=== PATIENT | male | born 1935 | race Caucasian/White ===

== ENCOUNTER 2016-06-10 14:34 | Emergency (ER) | payer MEDICARE ==
[2016-02-03 10:40] VITALS: BMI 32.8
[~2016-06-10 14:34] MED LIST: ADVAIR 100/501 DISK INH; ADVAIR 500/501 DISK INH; BAYER CHEWABLE81 MG PO; BUMEX2 MG PO; CLARITIN 10 MG10 MG PO; COLACE100 MG PO; COMBIVENT RESPIM4 GM INH; COREG 3.1253.125 MG PO; CRESTOR40 MG PO; DALIRESP500 MCG PO; DOXYCYCLINE HY100 M2 PO; IPRAT-ALBUT 0.5-3 ML UPD; K-TAB10 MEQ PO; LACTINEX GRANUL1 PCK PO; LEVAQUIN500 MG PO; LEVAQUIN750 MG PO; MACRODANTIN100 MG PO; MUCINEX DM ER1 EAC1 PO; NORVASC10 MG PO; PLAVIX75 MG PO; PREDNISONE20 MG PO; PRILOSEC20 MG PO; STERAPRED DS 1010 MG PO; TESSALON PERLE100 MG PO; VALTREX500 MG PO; VIBRAMYCIN 100100 MG PO; XANAX0.25 MG PO
== END 2016-06-10 16:52 | disposition home or self-care (01) ==
LOC: D.ER 14:34
DX: J44.1 Chronic obstructive pulmonary disease with (acute) exacerbation (principal); J42 Unspecified chronic bronchitis

== ENCOUNTER → 2016-06-18 19:30 | Outpatient (CLI) | payer MEDICARE ==
[2016-02-03 10:40] VITALS: BMI 32.8
[~2016-06-18 19:30] MED LIST changes: +ALBUTEROL2.5 MG/3 M UPD; +BETAPACE 120 M120 MG PO; +BROVANA15 MCG/2 M INH; +BUMEX 1 MG TAB1 MG PO; +FLORAJEN3 CAPS460 MG PO; +IPRAT-ALBUT 0.5-3 ML INH; +K-DUR20 MEQ PO; +LASIX INJ40 MG/4 ML IV; +LOVENOX30 MG/0.3 SC; +MUCINEX600 MG PO; +MUCOMYST 20200 MG/M2 UPD; +NYSTATIN1 PWD TOPICAL; +PROTONIX40 MG PO; +PULMICORT0.5 MG/21 UPD; +ZOVIRAX200 MG PO
== END | disposition home or self-care (01) ==
LOC: D.SLEEP 19:30
DX: G47.33 Obstructive sleep apnea (adult) (pediatric) (principal)

== ENCOUNTER → 2016-06-27 08:35 | Outpatient (CLI) | payer MEDICARE ==
[2016-02-03 10:40] VITALS: BMI 32.8
== END | disposition home or self-care (01) ==
LOC: D.RT 08:35
DX: J44.9 Chronic obstructive pulmonary disease, unspecified (principal)

== ENCOUNTER 2016-07-09 13:42 | Inpatient (IN) | payer MEDICARE ==
[2016-07-09] VITALS (25 sets, daily range): BP systolic 98–123; BP diastolic 45–78; BMI 36.4
[~2016-07-09] VITALS: Ht 190.5 cm; Wt 130.5 kg
[~2016-07-09 13:42] MED LIST changes: -ALBUTEROL2.5 MG/3 M UPD; -BETAPACE 120 M120 MG PO; -BROVANA15 MCG/2 M INH; -BUMEX 1 MG TAB1 MG PO; -FLORAJEN3 CAPS460 MG PO; -IPRAT-ALBUT 0.5-3 ML INH; -K-DUR20 MEQ PO; -LASIX INJ40 MG/4 ML IV; -LOVENOX30 MG/0.3 SC; -MUCINEX600 MG PO; -MUCOMYST 20200 MG/M2 UPD; -NYSTATIN1 PWD TOPICAL; -PROTONIX40 MG PO; -PULMICORT0.5 MG/21 UPD; -ZOVIRAX200 MG PO
[2016-07-09 14:21] LABS: BASOPHILS 0.5 % (0.0-2.0); EOSINOPHILS 10.5 % (0-7); HEMATOCRIT 45.8 % (42.0-54.0); HEMOGLOBIN 14.6 g/dL (13.5-17.5); IMMATURE GRANULOCYTES 0.2 % (0-5); LYMPHOCYTES 22.5 % (15-50); MCH 30.4 pg (26.0-34.0); MCHC 31.9 g/dL (31.0-37.0); MCV 95.2 fL (80.0-100.0); MEAN PLATELET VOLUME 10.4 fL (7.4-10.4); MONOCYTES 6.3 % (2-11); PLATELET COUNT 217 10x3/uL (130-400); RBC 4.81 10x6/uL (4.20-6.10); RDW 14.4 % (11.5-14.5); WBC 9.4 10x3/uL (4.8-10.8)
[2016-07-09 14:59] LABS: ALBUMIN 4.5 g/dL (3.4-5.0); ANION GAP 8.8 mmol/L (8-16); BILIRUBIN - TOTAL 0.63 mg/dL (0.2-1.3); CALCIUM 8.8 mg/dL (8.5-10.1); CARBON DIOXIDE 37.4 mmol/L (21.0-32.0); CREATININE - SERUM 2.1 mg/dL (0.6-1.3); POTASSIUM - SERUM 5.2 mmol/L (3.5-5.1); PROTEIN - SERUM 7.6 g/dL (6.4-8.2)
[2016-07-09 15:20] LABS: CREATINE KINASE 117 UL (21-232); MAGNESIUM - SERUM 2.5 mg/dL (1.8-2.4); PRO BNP 159 pg/mL (0-450); TROPONIN-I < 0.017 ng/mL (0.000-0.060)
--- NOTE | 2016-07-09 17:48 | NUR ---
1740-PT REC'D TO ICU, ALL MONITORING EQUIPMENT ATTACHED. LEVOPHED AT 8MCG/MIN. DIPROVAN AT 12MCG/KG/MIN. BP 123/[address] BAEZ HERE.
--- NOTE | 2016-07-09 18:16 | NUR ---
16FR SALEM SUMP TUBE DROPPED OG, PLACEMENT VERIFIED WITH AIR BOLUS AND STOMACH SECRETIONS. SET TO LIWS. SECONDARY TO 20G AC IV BEING DC'D WHEN TRANSFERED FROM ER CART TO BED, IV RESITED TO RIGHT HAND WITH 20G X 1 STICK. PATIENT WAS REPOSITIONED FOR COMFORT, PATIENT FROM ER WITH SOFT WRIST RESTRAINTS IN PLACE, AND THEY WERE SECURED TO THE BED. ELDER CATH NOTED TO HAVE CLEAR YELLOW URINE IN IT. SULAIMAN RN AT BEDSIDE WORKING ON ADMISSION PAPERWORK WITH FAMILY X2 AT BEDSIDE. TIME OF ARRIVAL WAS 1740.
--- NOTE | 2016-07-09 20:00 | NUR ---
INITIAL ADMIT ASSESSMENT DONE IN LIEU OF INITIAL SHIFT ASSESSMENT SEE FLOWSHEET. SOME OF THE NUTRITRIONAL, EDUCATIONAL AND DISCHARGE NEEDS DONE WITH LIMITED INFORMATION AVAILABLE. THERE IS NO FAMILY HERE TO QUESTION ABOUT TIME IMMEDIATELY PRIOR TO HOSPITALIZATION AND PT IS INTUBATED AND SEDATED. PT IS ALSO SOMEWHAT AGGITATED AND PULLING AT RESTRAINTS AND BITING AT ETT. SEDATION WILL BE INCREASED NECESSARY. PT UNABLE TO BE CALMED WITH TALKING AND ANY STIMULATION ONLY INCREASES HIS AGGITATION. PT IS IN RESTRAINTS AND IS TOTAL CARE AT THIS TIME.
--- NOTE | 2016-07-09 20:30 | NUR ---
RT AT BEDSIDE INCREASED RESP RATE OF VENT TO [address] TAN'S ORDERS BASED ON ABG RESULTS
--- NOTE | 2016-07-09 21:00 | NUR ---
NO VISITORS AT THIS TIME
--- NOTE | 2016-07-09 21:22 | NUR ---
NEW TUBING HUNG FOR LIGIA
--- NOTE | 2016-07-09 23:00 | NUR ---
SHIFT REASSESSMENT COMPLETED SEE FLOWSHEET. TITRATING LEVOPHED TOLERATED. TITRATING DIPROVAN NEEDED FOR SEDATION. RATE OF VENT HAS INCREASED TO 18 THIS SHIFT. NO OTHER VENT CHANGES. ORAL MUCOSA MUCH LESS DRY. ORAL CARE Q2H. PT BEING TURNED AND REPOSITIONED Q2H WITH PILLOWS TO ELEVATED EXTREMETIES AND PROVIDE SUPPORT AND RELIEVE PRESSURE. HEELS ARE FLOATED.
[2016-07-10] VITALS (74 sets, daily range): BP systolic 84–144; BP diastolic 42–86; Ht 190.5 cm; Wt 130.5 kg
--- NOTE | 2016-07-10 01:00 | NUR ---
PT IS TOLERATING VENTILATION WELL AT THIS TIME IS NOT BREATHING OVER THE VENT AND WITH NO AGGITATION
--- NOTE | 2016-07-10 03:00 | NUR ---
SHIFT REASSESSMENT COMPLETED NO SIGNIFICANT CHANGE. PT CONTINUES TO BECOME AGGITATED WITH ANY STIMULATION
--- NOTE | 2016-07-10 03:29 | NUR ---
RT AT BEDSIDE FOR AM ABGS
--- NOTE | 2016-07-10 03:29 | NUR ---
PT AGGITATED MEDS GIVEN PER MAR
--- NOTE | 2016-07-10 04:05 | NUR ---
ATIVAN EFFECTIVE FOR PT'S AGGITATION
--- NOTE | 2016-07-10 04:27 | NUR ---
RADIOLOGY AT BEDSIDE FOR CXR
--- NOTE | 2016-07-10 04:51 | NUR ---
DIPROVAN TUBING LEAKING, CHANGED AND DATED ALL TUBING IS DATED AND APPROPRIATE. FORM TAMPING MACHINE OPERATOR AT BEDSIDE FOR AM LAB DRAW
[2016-07-10 04:58] LABS: BASOPHILS 0.1 % (0.0-2.0); EOSINOPHILS 0.1 % (0-7); IMMATURE GRANULOCYTES 0.4 % (0-5); LYMPHOCYTES 7.7 % (15-50); MCH 30.3 pg (26.0-34.0); MCHC 31.7 g/dL (31.0-37.0); MCV 95.6 fL (80.0-100.0); MEAN PLATELET VOLUME 10.3 fL (7.4-10.4); MONOCYTES 0.6 % (2-11); NEUTROPHILS 91.1 % (40-80); PLATELET COUNT 212 10x3/uL (130-400); RBC 4.29 10x6/uL (4.20-6.10); RDW 14.3 % (11.5-14.5); WBC 10.2 10x3/uL (4.8-10.8)
[2016-07-10 05:19] LABS: CALCIUM 8.1 mg/dL (8.5-10.1); CARBON DIOXIDE 31.3 mmol/L (21.0-32.0); CHLORIDE - SERUM 102 mmol/L (98-107); MAGNESIUM - SERUM 2.3 mg/dL (1.8-2.4); PHOSPHOROUS 4.7 mg/dL (2.5-4.9); POTASSIUM - SERUM 5.7 mmol/L (3.5-5.1); SODIUM 139 mmol/L (136-145); TROPONIN-I < 0.017 ng/mL (0.000-0.060); UREA NITROGEN 63 mg/dL (7-18); eGFR NON AFRICAN AMERICAN 24 mL/min (90-120)
[2016-07-10 05:20] LABS: CALC OSMOLALITY 300 mosm/kg (275-300); CREATININE - SERUM 2.7 mg/dL (0.6-1.3); GLUCOSE 180 mg/dL (74-106)
--- NOTE | 2016-07-10 05:27 | NUR ---
UPON CHANGING LEADS ON EKG RHYTHM MORE CLEAR. PT IS SINUS ARHYTHMIA WITH PAC'S NOT AFIB
--- NOTE | 2016-07-10 09:43 | NUR ---
PATIENT IS ON THE VENT AND SEDATED. I HAVE NOT SEEN ANY FAMILY HERE TO INTERVIEW. CM TO FOLLOW.
--- NOTE | 2016-07-10 16:42 | NUR ---
1645- CT OF ABD DONE.
--- NOTE | 2016-07-10 19:30 | NUR ---
REPORT RECEIVED CARE ASSUMED. INITIAL SHIFT ASSESSMENT COMPLETED. PT REMAINS SEDATED WITH DIPROVAN AND IS SUPPORTED VIA VENTILATOR. CURRENTLY RECEIVING LEVOPHED TO MAINTAIN ADEQUATE B/P, TITRATING, SEE IV FLOWSHEET. PT REMAINS TOTAL CARE AND IS TURNED AND REPOSTIONED Q2H WITH PILLOWS USED TO FLOAT HEELS, PROVIDE SUPPORT, RELIEVE PRESSURE AND TO ELEVATE ARMS. COCCYX IS MUCH IMPROVED OF THE REDNESS OBSERVED IN PAST 24 HOURS. WILL CONTINUE TO TURN STATED. PT BEING MONITORED PER ICU PROTOCOL WITH ALL ALARMS SET. IV TUBING IS NOTED TO BE CURRENT AND NOT DUE TO BE CHANGED AT THIS TIME
--- NOTE | 2016-07-10 20:30 | NUR ---
URINE SPECIMEN COLLECTED AND SENT TO THE LAB FOR ANALYSIS
--- NOTE | 2016-07-10 21:18 | NUR ---
LABS REVIEWED K+ 4.9 WILL CONTINUE TO MONITOR. NO VISITORS AT THIS TIME
[2016-07-10 21:30] LABS: CREATININE - URINE 57.6 mg/dL (30-125)
[2016-07-10 21:33] LABS: APPEARANCE CLEAR (CLEAR); BILIRUBIN NEGATIVE (NEGATIVE); COLOR YELLOW (YELLOW); GLUCOSE NEGATIVE (NEGATIVE); KETONE NEGATIVE (NEGATIVE); LEUKOCYTE ESTERASE TRACE (NEGATIVE); NITRITE NEGATIVE (NEGATIVE); PROTEIN NEGATIVE (NEGATIVE); UROBILINOGEN NORMAL (NORMAL)
[2016-07-10 21:34] LABS: BACTERIA FEW /hpf (NONE SEEN); WHITE CELLS - URINE 0-5 /hpf (0-5)
--- NOTE | 2016-07-10 23:00 | NUR ---
SHIFT REASSESSMENT COMPLETED NO SIGNIFICANT CHANGES. CONTINUE TO TITRATE LEVOPHED WITH CHANGES NOTED ON THE IV FLOWSHEET. PT WAS GIVEN ATIVAN DOCUMENTED ON MAR FOR AGGITATION. THIS WAS EFFECTIVE.
--- NOTE | 2016-07-10 23:45 | NUR ---
DIPROVAN TUBING CHANGED PER POLICY
[2016-07-11] VITALS (27 sets, daily range): BP systolic 91–142; BP diastolic 42–65
--- NOTE | 2016-07-11 01:00 | NUR ---
PT RESTING QUIETLY RESP CORRESPONDING WITH VENT SETTINGS
--- NOTE | 2016-07-11 03:00 | NUR ---
SHIFT REASSESSMENT COMPLETED. PT INCONTINENT OF LOOSE BROWN STOOL. GIVEN COMPLETE BATH AND ALL LINENS CHANGED. SEE FLOWSHEETS. NO SIGNIFICANT CHANGES. PT REMAINS OFF OF LEVOPHED AND IS MAINTAINING ADEQUATE B/P'S
--- NOTE | 2016-07-11 03:30 | NUR ---
RT AT BEDSIDE DOING ABG'S, REVIEWED, NO CHANGES NEEDED ON VENT
--- NOTE | 2016-07-11 04:00 | NUR ---
RADIOLOGY AT BEDSIDE FOR AM CRX
--- NOTE | 2016-07-11 04:18 | NUR ---
LAB AT BEDSIDE FOR AM LAB DRAW
[2016-07-11 05:08] LABS: BASOPHILS 0 % (0.0-2.0); EOSINOPHILS 0 % (0-7); HEMOGLOBIN 10.8 g/dL (13.5-17.5); IMMATURE GRANULOCYTES 0.2 % (0-5); LYMPHOCYTES 6.3 % (15-50); MCH 31.7 pg (26.0-34.0); MCHC 32.7 g/dL (31.0-37.0); MCV 96.8 fL (80.0-100.0); MEAN PLATELET VOLUME 10.6 fL (7.4-10.4); MONOCYTES 1.8 % (2-11); NEUTROPHILS 91.7 % (40-80); RDW 14.7 % (11.5-14.5); WBC 10.9 10x3/uL (4.8-10.8)
[2016-07-11 05:15] LABS: PLATELET COUNT 154 10x3/uL (130-400); RBC 3.41 10x6/uL (4.20-6.10)
[2016-07-11 05:22] LABS: CARBON DIOXIDE 25.7 mmol/L (21.0-32.0); CREATININE - SERUM 2.7 mg/dL (0.6-1.3); MAGNESIUM - SERUM 1.8 mg/dL (1.8-2.4); PHOSPHOROUS 4.4 mg/dL (2.5-4.9)
[2016-07-11 05:31] LABS: ALBUMIN 2.7 g/dL (3.4-5.0); ANION GAP 14.8 mmol/L (8-16); POTASSIUM - SERUM 3.5 mmol/L (3.5-5.1)
--- NOTE | 2016-07-11 08:00 | NUR ---
SHIFT ASSESSMENT VIA FLOWSHEET, SEE FOR DETAILS.
--- NOTE | 2016-07-11 12:24 | NUR ---
SIGNIFICANT OTHER AT BEDSIDE UPDATE BY DR TAN AND MYSELF.
--- NOTE | 2016-07-11 13:24 | NUR ---
PT'S WAS HERE EARLIER TODAY. I WAS NOT IN THE UNIT AND DID NOT GET TO INTERVIEW HER. PATIENT'S NURSE STATES SHE SHOULD BE BACK TOMORROW. CM WILL TRY TO INTERVIEW WHEN SHE VISITS TOMORROW. CM TO FOLLOW.
--- NOTE | 2016-07-11 19:30 | NUR ---
REPORT RECEIVED CARE ASSUMED. INITIAL SHIFT ASSESSMENT PER FLOWSHEET. PT CURRENTLY RECEIVING DIPROVAN FOR SEDATION WILL ASSESS AND TITRATE. RECEIVING PULMOCARE VIA OGT AT 30ML/HR WITH GOAL OF 40 WILL INCREASE TOLERATED. PLACEMENT VERIFIED WITH AIR BOLUS RESIDUAL 5ML RETURNED AND FLUSHED WITH 20ML WATER. ALL TUBING CHECKED AND IS CURRENT NOT REQUIRING CHANGING AT THIS TIME. PT REMAINS TOTAL CARE WITH ALL ADL'S PROVIDED AND TURNED AND REPOSITIONED Q2H USING PILLOWS TO ELEVATE ARMS, PROVIDE SUPPORT, RELIEVE PRESSURE AND FLOAT HEELS. PT BEING SUPPORTED VIA VENTILATOR AND TOLERATING WELL. POORLY TOLERATES STIMULATION INCLUDING ORAL CARE. MOUTH IS MOIST AND PURPLE RAISED ARE ON RIGHT LOWER LIP IS FADING RAPIDLY. PT BEING MONITORED PER STANDARD ICU PROTOCOL WITH ALL ALARMS CHECKED AND VERIFIED
--- NOTE | 2016-07-11 21:00 | NUR ---
PT TURNED AND REPOSTIONED WITH ROM. NYSTATIN POWDER APPLIED TO GROIN AFTER F/C CARE DONE. ORAL CARE DONE PT TOLERATEDN VERY WELL. RESIDUAL AND PLACEMENT OF OGT RECHECKED IN ANTICIPATION OF INCREASING TOWARD GOAL RESIDUAL 65 RETURNED AND FLUSHED REMAINING AT 30ML/HR FOR NOW
--- NOTE | 2016-07-11 21:05 | NUR ---
NO VISITORS AT THIS TIME
--- NOTE | 2016-07-11 23:27 | NUR ---
REASSESSMENT COMPLETE, NO CHANGES NOTED, PT RESTING AT THIS TIME, REPOSITIONED FOR COMFORT, ORAL CARE PROVIDED
[2016-07-12] VITALS (24 sets, daily range): BP systolic 115–158; BP diastolic 50–78
--- NOTE | 2016-07-12 01:09 | NUR ---
REPOSITIONED FOR COMFORT, ORAL CARE PROVIDED
--- NOTE | 2016-07-12 03:20 | NUR ---
REASSESSMENT COMPLETE, NO CHANGES NOTED, PT RESTING AT THIS TIME, REPOSITIONED FOR COMFORT, ORAL CARE PROVIDED
[2016-07-12 04:59] LABS: BASOPHILS 0 % (0.0-2.0); EOSINOPHILS 0 % (0-7); HEMATOCRIT 34.3 % (42.0-54.0); HEMOGLOBIN 11.2 g/dL (13.5-17.5); IMMATURE GRANULOCYTES 0.3 % (0-5); LYMPHOCYTES 3.9 % (15-50); MCH 31.3 pg (26.0-34.0); MCHC 32.7 g/dL (31.0-37.0); MCV 95.8 fL (80.0-100.0); MEAN PLATELET VOLUME 10.7 fL (7.4-10.4); MONOCYTES 3.5 % (2-11); NEUTROPHILS 92.3 % (40-80); PLATELET COUNT 153 10x3/uL (130-400); RBC 3.58 10x6/uL (4.20-6.10); RDW 14.6 % (11.5-14.5); WBC 9.4 10x3/uL (4.8-10.8)
--- NOTE | 2016-07-12 05:05 | NUR ---
PARTIAL BB LINEN CHANGE ADM. VSS WILL CONTINUE TO MONITOR.
[2016-07-12 05:25] LABS: ALBUMIN 2.5 g/dL (3.4-5.0); ANION GAP 11.5 mmol/L (8-16); BILIRUBIN - TOTAL 0.79 mg/dL (0.2-1.3); CARBON DIOXIDE 27.8 mmol/L (21.0-32.0); CREATININE - SERUM 1.9 mg/dL (0.6-1.3); POTASSIUM - SERUM 3.3 mmol/L (3.5-5.1)
[2016-07-12 05:26] LABS: CALCIUM 6.4 mg/dL (8.5-10.1); PROTEIN - SERUM 5.2 g/dL (6.4-8.2)
--- NOTE | 2016-07-12 05:39 | NUR ---
COMPLETE BATH AND PARTIAL LINEN CHANGE
--- NOTE | 2016-07-12 08:00 | NUR ---
SHIFT ASSESSSMENT VIA FLOWSHEET, SEE FOR DETAILS.
--- NOTE | 2016-07-12 09:10 | NUR ---
FAMILY AT BEDSIDE, UPDATE PROVIDED.
--- NOTE | 2016-07-12 09:15 | NUR ---
NO VISITORS AT THIS TIME, PT REPOSITIONED. VSS.
--- NOTE | 2016-07-12 09:42 | NUR ---
NUTRITION MONITORING & EVAL CHART REVIEWED. PT REMAINS SEDATED ON VENT. DIPRIVAN @ 38 CC/HR PROVIDING 1003 KCAL PER DAY. PULMOCARE AT 30 CC PER HOUR WITH GOAL RATE 45 CC/HR. GOAL RATE WITH DIPRIVAN WILL PROVIDE [phone] KCAL, [address] FOLLOWING
--- NOTE | 2016-07-12 11:30 | NUR ---
REASSESSMENT VIA FLOWSHEET, SEE FOR DETAILS.
--- NOTE | 2016-07-12 12:19 | NUR ---
PT'S S/O AT BEDSIDE, UPDATED BY DR BAEZ AND MYSELF.
--- NOTE | 2016-07-12 13:06 | NUR ---
Is the patient Alert and Oriented? No 0 * How many steps to enter\exit or inside your home? 0 0 * PCP DR. ORNELAS 0 * Pharmacy [facility] ON [address] 0 * Preadmission Environment Home with Family 0 * ADLs Independent 0 * Equipment Oxygen 0 * Other Equipment PATIENT HAS PORTABE AND CONCENTRATOR O2 FROM [facility] 0 * List name and contact numbers for known caregivers / representatives who currently or will assist patient after discharge: S/O ABELARDO DODGE [phone] 0 * Community resources currently utilized None 0 * Additional services required to return to the preadmission environment? No 0 * Can the patient safely return to the preadmission environment? Yes 0 * Has this patient been hospitalized within the prior 30 days at any hospital? No PATIENT IS ON THE VENT AND SEDATED. HIS S/O, ABELARDO IS PRESENT AND STATES THAT PATIENT WAS INDEPENDENT IN ALL ADLS. HE LIVES AT HOME. HIS PCP IS DR. ORNELAS. HE GETS HIS MEDS FROM [facility] ON [address] PATIENT HAD HOME HEALTH IN THE PAST BUT SHE DOES NOT RECALL WHO THE AGENCY WAS. HE HAS O2 PORTABLE AND CONCENTRATOR PROVIDED BY [facility]. THERE ARE NO STEPS TO ENTER HIS HOME. ABELARDO WILL BE AVAILABLE TO DRIVE HIM HOME AT DISCHARGE. NO DISCHARGE NEEDS IDENTIFIED AT THIS TIME.
--- NOTE | 2016-07-12 15:30 | NUR ---
REASSESSMENT VIA FLOWSHEET, SEE FOR DETAILS.
[2016-07-12 16:16] LABS: AFB SPECIMEN PROCESSING Concentration (())
--- NOTE | 2016-07-12 19:10 | NUR ---
REC'D TO CARE, POWER DISTRIBUTION ENGINEER PER FLOWSHEET. PT SEDATED ON VENT VIA OETT - SEE FLOWSHEET. DIPRIVAN AT 50MCG/KG/MIN - WILL TITRATE PER MD ORDER. R AND L HAND PIVS PATENT. GENERALIZE SWELLING NOTED TO ALL EXTR - ELEVATED ON PILLOWS. CM - SR WITH FREQ PACS. LUNGS WITH FAINT CRACKLES B/L AND DIMINISHED BASES. ELDER CATH PATENT - REDDENED/YEAST-LIKE AREAS NOTED TO B/L GROINS. ALARMS ON.
--- NOTE | 2016-07-12 21:00 | NUR ---
NO VISITORS. PT INCONT OF LARGE, LOOSE BROWN STOOL. COMPLETE BATH AND LINEN CHANGE DONE. BARRIER CREAM APPLIED TO BUTTOCKS. NYSTATIN POWDER TO GROIN ORDERED. PT REPOSITIONED UP IN BED TO R SIDE. ORAL CARE AND ETT SXN FOR COPIOUS CLEAR SECRETIONS.
--- NOTE | 2016-07-12 22:49 | NUR ---
REASSESSMENT PER FLOWSEHET. NO ACUTE CHANGES. REPOSITIONED UP IN BED. ROM DONE.
[2016-07-13] VITALS (25 sets, daily range): BP systolic 114–147; BP diastolic 50–95
--- NOTE | 2016-07-13 00:49 | NUR ---
PT INCONTINENT OF LARGE LOOSE BROWN BM. MARGARITA-CARE DONE AND PADS CHANGED. PT REPOSITIONED UP IN BED.
--- NOTE | 2016-07-13 03:01 | NUR ---
L HAND PIV D/C'D INTACT PER PROTOCOL. NEW 20GA PIV SITED TO L FOREARM X STICK. SL'D.
--- NOTE | 2016-07-13 03:21 | NUR ---
PCXR DONE. SEE REASSESSMENT. NO ACUTE CHANGES.
[2016-07-13 04:59] LABS: BASOPHILS 0 % (0.0-2.0); EOSINOPHILS 0 % (0-7); HEMATOCRIT 40.5 % (42.0-54.0); HEMOGLOBIN 12.5 g/dL (13.5-17.5); IMMATURE GRANULOCYTES 0.3 % (0-5); LYMPHOCYTES 4.2 % (15-50); MCH 29.8 pg (26.0-34.0); MCHC 30.9 g/dL (31.0-37.0); MCV 96.7 fL (80.0-100.0); MEAN PLATELET VOLUME 11.3 fL (7.4-10.4); MONOCYTES 3.6 % (2-11); NEUTROPHILS 91.9 % (40-80); PLATELET COUNT 149 10x3/uL (130-400); RBC 4.19 10x6/uL (4.20-6.10); RDW 15.1 % (11.5-14.5)
--- NOTE | 2016-07-13 05:11 | NUR ---
INCONT OF LARGE GREEN/BROWN LOOSE STOOL. COMPLETE MARGARITA-CARE DONE, NYSTATIN POWDER TO GROIN AND BARRIER OINT TO BUTTOCKS. REPOSITIONED UP IN BED TO R SIDE.
[2016-07-13 05:18] LABS: ANION GAP 11.6 mmol/L (8-16); CARBON DIOXIDE 32.8 mmol/L (21.0-32.0); CREATININE - SERUM 1.6 mg/dL (0.6-1.3); POTASSIUM - SERUM 4.4 mmol/L (3.5-5.1)
[2016-07-13 05:20] LABS: CALCIUM 8.3 mg/dL (8.5-10.1)
--- NOTE | 2016-07-13 08:09 | NUR ---
LYING IN BED AT THIS TIME. NO ACUTE DISTRESS NOTED. PT PROPIFOL DECREASED TO 45MCG AT THIS TIME. PT OPENS EYES TO STAFF SPEECH AND FOLLOWS SIMPLE COMMANDS. NO ACUTE DISTRESS. ALSO AT THIS TIME. NOTED PT SIGNIFICANT OTHER REQUESTED TO BE NOTIFIED WHEN PT IS TO START WEANING FROM VENT. SPOKE WITH PT SIGNIFICANT OTHER AT THIS TIME TO NOTIFY THAT PT TO START WEANING TRIALS TODAY, SHE STATED SHE WOULD BE BY TO SEE PT AROUND 1200. ALSO AT THIS TIME PULMOCARE TUBE FEEDINGS INCREASED FROM 40ML/HOUR TO 45ML/HOUR WHICH IS PT GOAL. RESIDUAL NOTED AT 5ML. PT TURNED Q2H. WILL CONTINUE PLAN OF CARE.
[2016-07-13 10:19] LABS: FUNGUS STAIN Final report (())
--- NOTE | 2016-07-13 10:26 | NUR ---
FAMILY AT BEDSIDE. UPDATE GIVEN. NO ACUTE DISTRESS NOTED. WILL CONTINUE PLAN OF CARE.
--- NOTE | 2016-07-13 12:04 | NUR ---
PT RHYTHM NOTED TO GO IN AND OUT OF AFIB AT THIS TIME WITH HEART RATE RANGING FROM 82-149 DR TAN ON FLOOR AT THIS TIME. NOTED STAT ORDERS FOR EKG AND TROPONIN LEVELS NOW. ALSO NOTED ORDER THAT IF AFIB BECOMES UNCONTROLLED AGAIN OVER 125 TO START CARDIZM AT 10ML/HOUR. WILL CONTINUE TO OBSERVE.
--- NOTE | 2016-07-13 12:32 | NUR ---
SPOKE WITH DR TAN. NOTED ORDER FOR PICC LINE PLACEMENT. PT SIGNIFICANT OTHER AT BEDSIDE AND GIVES CONSENT AND DENIES ANY QUESTIONS/CONCERNS. ORDER PLACED AT THIS TIME. ALSO AT THIS TIME CARDIZEM DRIP STARTED AT 10MG/HOUR. WILL CONTINUE PLAN OF CARE.
--- NOTE | 2016-07-13 12:46 | NUR ---
CONSENT FOR PICC LINE PLACEMENT SIGNED BY PT SIGNIFICANT OTHER WHO IS PT POA. CONSENT PLACED IN CHART.
--- NOTE | 2016-07-13 13:25 | NUR ---
VENOUS ACCESSS NURSE IN ROOM WITH PT AT THIS TIME PLACING PICC LINE. PT HEART RATE NOTED AT 85. NO ACUTE DISTRESS NOTED. WILL CONTINUE PLAN OF CARE.
--- NOTE | 2016-07-13 14:19 | NUR ---
PICC LINE PLACED AT THIS TIME BY VASCULAR NURSE. STAT CHEST XRAY ORDERED AT THIS TIME TO VERIFY PLACEMENT.
--- NOTE | 2016-07-13 15:01 | NUR ---
PLACEMENT VERIFICATION CONFIRMATION NOTED AT THIS TIME VIA CHEST XRAY.
--- NOTE | 2016-07-13 16:44 | NUR ---
NO ACUTE DISTRESS NOTED AT THIS TIME. PT MOVING LEGS IN BED AND FOLLOWS SIMPLE COMMANDS. OPENS EYES WHEN SPOKEN TO. NO ACUTE DISTRESS NOTED. WILL CONTINUE PLAN OF CARE.
--- NOTE | 2016-07-13 17:37 | NUR ---
NO ACUTE DISTRESS NOTED AT THIS TIME. NO CHANGE. WILL CONTINUE PLAN OF CARE.
--- NOTE | 2016-07-13 17:51 | NUR ---
RESIDUAL ASSESSED AT THIS TIME AND NOTED AT 30ML. PT TOLERATING FLUIDS WELL. WILL CONTINUE PLAN OF CARE.
--- NOTE | 2016-07-13 19:30 | NUR ---
Assessment complete. See flowsheet. Pt sedated with Propofol infusing @ 40mcg/kg/min. Eyes open and pt tracking. Right pupil blown/unreactive. Left pupil size 3 bilaterally ERRL. Pt moving all extremities with 2/5 strength to all extremities. Generalized edema noted. Pt with 7.5 FR OET tube secure 23cm @ lip to vent set SIMV Rate 16 TV 600 FiO2 @ 30% PEEP 5 PS 20. Lung sounds present rhonchi to all neff. Pt OET inline suctioned with thick, yellow sputum retrieved and strong, prodctive cough triggered. HR SR with frequent PACs. S1S2 auscultated. All peripheral pulses +2 with capillary refill <3 seconds. Left upper arm PICC line site CDI with Propofol sedation infusing with D5W @ 75cc/hr and Cardizem gtt infusing @ 10mg/hr. Abdomen distended with BS present to all quadrants. OGT secure to TF Pulmocare infusing @ 45cc/hr. Gastric residual check yields 200cc TF colored content aspirated and reinstilled. TF off for now. Morrell secure retrieving concentrated, dao urine with sediment. SCDs secure bilaterally. Right hand PIV/Left forearm PIV sites CDI saline locked no s/s infection. Pt incontinent of large, liquid, brown BM. Bed bath with incontinence care completed. Rectal tube placed. Skin barrier cream applied to buttox. Pt pulled up in bed and repositioned to left side with HOB @ 30 degrees. Oral care completed with mouth moisturizer applied. Arms and heels bridged. Bilat soft wrist restraints secured after ROM completed to all extremities. CPOC.
--- NOTE | 2016-07-13 21:30 | NUR ---
Pt repositioned to right side. HOB @ 30 degrees. Oral care completed with mouth moisturizer applied. CPOC.
--- NOTE | 2016-07-13 23:30 | NUR ---
Assessment complete. See flowsheet. Pt remains sedated to sarkis 3 with Propofol sedation infusing. NO neuro changes to note from previous assessment. OET tube remains secure to vent with no setting changes to note. Lung sounds continue to present rhonchi to all neff. Pt OET inline suctioned with strong, productive cough triggered and thin, veras sputum retrieved. oral care completed with mouth moisturizer applied. HR remains SR with frequent PACs noted. S1S2 auscultated. All peripheral pulses +2 with capillary refill <3 seconds. PICC line site CDI with NO IVF changes to note from previous assessment. PIV sites to left forearm and right and remain CDI; saline locked with no s/s infection. BS present to all quadrants. OGT secure to Pulmocare turned off at this time. Gastric residual yields 155cc yellow gastric content aspirated and reinstilled. TF remains off at this time. Rectal tube secure retrieving liquid, brown stools. Morrell secure retrieving concentrated, dao urine with sediment. SCDs secure bilaterally. Pt pulled up in bed and positioned to back with HOB @ 30 degrees. Bilat soft wrist restraints secure. Arms and heels remain bridged. No other changes to note from previous assessment. No s/s pain or distress at this time. CPOC.
[2016-07-14] VITALS (24 sets, daily range): BP systolic 113–150; BP diastolic 54–88
--- NOTE | 2016-07-14 01:30 | NUR ---
Pt repositioned to left side. HOB @ 30 degrees. Oral care completed per Bobbi CHAVARRIA.
--- NOTE | 2016-07-14 03:30 | NUR ---
Reassessment complete. See flowsheet. Pt remains sedated to sarkis 2-3 with Propofol sedation. PICC line site remains CDI; unchanged. OET tube secure to vent with NO SETTING Changes to note. Lung sounds continue to present rhonchi to all neff. Pt OET inline suctioned with white sputum retrieved and strong, productive cough triggered. HR remains SR with PACs. S1S2 auscultated. Cardizem gtt rate decreased to 5mg/hr for HR 63BPM. All peripheral pulses +2 with capillary refill <3 seconds. BS +. OGT secure. Gastric residual 0cc. TF back on @ previous rate 45cc/hr. Morrell remains secure retrieving concentrated, dao urine with sediment. Rectal tube secure retrieving liquid, brown stools. Pt pulled up in bed and positioned to back with HOB @ 30 degrees. Arms and heels bridged. NO s/s pain or distress. Bilat soft wrist restraints resecured. CPOC.
[2016-07-14 04:35] LABS: BASOPHILS 0 % (0.0-2.0); EOSINOPHILS 0 % (0-7); HEMATOCRIT 38.8 % (42.0-54.0); HEMOGLOBIN 12.2 g/dL (13.5-17.5); IMMATURE GRANULOCYTES 0.9 % (0-5); LYMPHOCYTES 4.2 % (15-50); MCH 30.2 pg (26.0-34.0); MCHC 31.4 g/dL (31.0-37.0); MEAN PLATELET VOLUME 10.4 fL (7.4-10.4); MONOCYTES 3.4 % (2-11); NEUTROPHILS 91.5 % (40-80); PLATELET COUNT 149 10x3/uL (130-400); RBC 4.04 10x6/uL (4.20-6.10); WBC 10.3 10x3/uL (4.8-10.8)
[2016-07-14 04:48] LABS: ANION GAP 9.8 mmol/L (8-16); CALCIUM 8.1 mg/dL (8.5-10.1); CARBON DIOXIDE 30.7 mmol/L (21.0-32.0); CREATININE - SERUM 1.2 mg/dL (0.6-1.3); POTASSIUM - SERUM 4.5 mmol/L (3.5-5.1)
--- NOTE | 2016-07-14 07:41 | NUR ---
SITTING UP IN BED AT THIS TIME RESTING. NO ACUTE DISTRESS NOTED. PT OPENS EYES WHEN STAFF WALKS INTO ROOM. FOLLOWS SIMPLE COMMANDS. RECTAL TUBE IN PLACE, NO LEAKING NOTED. WILL CONTNIUE PLAN FO CARE.
--- NOTE | 2016-07-14 10:12 | NUR ---
NO ACUTE DISTRESS NOTED. ALERT. NODS AND SHAKES HEAD FOR YES AND NO. FOLLOWS SIMPLE COMMANDS. WILL CONTINUE PLAN OF CARE.
--- NOTE | 2016-07-14 10:17 | NUR ---
RESIDUAL CHECKED AT THIS TIME AND NOTED AT 10ML.
--- NOTE | 2016-07-14 12:22 | NUR ---
NOTED PT IS ON CPAP AT THIS TIME. SEDATION TURNED OFF. NO ACUTE DISTRESS NOTED. PT IS CALM, FOLLOWS COMMANDS. FAMILY AT BEDSIDE, UPDATE GIVEN. WILL CONTINUE PLAN FO CARE.
--- NOTE | 2016-07-14 12:45 | NUR ---
PT EXTUBATED AT THIS TIME. OXYGEN PLACED AT 6L VIA NC. NO ACUTE DISTRESS NOTED. FAMILY AT BEDSIDE. RESTRAINTS ALSO DC AT THIS TIME. WILL CONTINUE PLAN FO CARE.
--- NOTE | 2016-07-14 14:50 | NUR ---
UP IN BED AT THIS TIME. DENIES ANY NEEDS. IS ALERT AND ORIENTED. NO ACUTE DISTRESS NOTED. PT DOES HAVE SOME WEAKNESS ESPECIALLY TO EXTREMITIES. HAS DIFFICULT TIME RAISING ARMS. PT ENCOURAGED TO CONTINUE WITH RANGE OF MOTION. WILL CONTINUE PLAN OF CARE.
--- NOTE | 2016-07-14 16:49 | NUR ---
SITTING UP IN BED AT THIS TIME. DENEIS ANY NEEDS. TOLERATES ICE CHIPS VERY WELL. WILL CONTINUE PLAN OF CARE.
--- NOTE | 2016-07-14 18:08 | NUR ---
TOLERATES SIPS OF WATER WELL. CLEAR LIQUID DIET TRAY ORDERED FOR PT. WILL CONTINUE TO OBSERVE.
--- NOTE | 2016-07-14 18:34 | NUR ---
IV TO RIGHT HAND DC PER PROTOCOL, HAD BEEN IN PLACE SINCE 07/10. CATHETER TIP INTACT. WILL CONTINUE PLAN OF CARE.
--- NOTE | 2016-07-14 19:20 | NUR ---
Assessment complete. See flowsheet. Pt awake with VSS. A/Ox4 and following all commands and conversation. Pt arms weak; 2/5 strength bilaterally with generalized edema noted to all extremities. Lower extremities 3/5 strenght bilaterally. Pt calm and cooperative and denies pain at this time. O2 @ 6L NC decreased to 5L NC per Bobbi RT. Respirations shallow and unlabored. Lung sounds present coarse crackles to all neff. HR SR with frequent PACs noted. S1S2 auscultated. All peripheral pulses +2 with capillary refill <3 seconds. Left upper arm PICC line site CDI with D5W infusing @ 75cc/hr with Cardizem gtt @ 5mg/hr. Left forearm PIV site CDI no s/s infection saline locked. Abdomen soft and distended; tympanic to percussion with BS present to all quadrants. Rectal tube secure retrieving liquid, brown stools. Morrell secure retrieving concentrated, dao urine with sediment. SCDs secure bilaterally. Pt denies pain at this time. Denies further request. Call light and bedside table remain with pt reach. CPOC.
--- NOTE | 2016-07-14 21:20 | NUR ---
Pt feeling better now. Family at bedside and helped with sips of clear soda. Denies nausea at this time VSS. CPOC
--- NOTE | 2016-07-14 23:20 | NUR ---
Reassessment complete. See flowsheet. Pt awake and watching television with no neuro changes to note. O2 @ 5L NC. Respirations shallow and unlabored. Pt encouraged to deep breathe and cough with no sputum produced and weak cough. IS encouraged and performed with 1000ml consistently reached. Lung sounds continue to present coarse crackles to all neff. HR REmains SR with frequent PACs. S1S2 auscultated. PIV site to forearm saline locked. PICC line CDI with NO IVF changes to note from previous assessment. BS +. ABdomen remains distended and tympanic to percussion. No other changes to note. Pt c/o nausea. Cool cloth to forehead. Call light and bedside table remain within pt reach. CPOC.
[2016-07-15] VITALS (24 sets, daily range): BP systolic 110–156; BP diastolic 60–92
--- NOTE | 2016-07-15 01:20 | NUR ---
Pt repositioned to right side per request and helped with sips of soda. HOB lowered per request. Call light and bedside table remain within pt reach. Light off per request. CPOC.
--- NOTE | 2016-07-15 03:20 | NUR ---
Reassessment complete. See flowsheet. Pt awake and provided with soda per request. NO neuro changes to note. O2 increased back to 6L NC after AM ABG per Bobbi RT. NO other changes to note. Pt denies further needs. Call light and bedside table remain within pt reach. CPOC.
[2016-07-15 04:48] LABS: BASOPHILS 0.1 % (0.0-2.0); EOSINOPHILS 0 % (0-7); HEMATOCRIT 42.4 % (42.0-54.0); HEMOGLOBIN 13.4 g/dL (13.5-17.5); IMMATURE GRANULOCYTES 1.1 % (0-5); LYMPHOCYTES 4.2 % (15-50); MCH 30.1 pg (26.0-34.0); MCHC 31.6 g/dL (31.0-37.0); MCV 95.3 fL (80.0-100.0); MEAN PLATELET VOLUME 10.9 fL (7.4-10.4); MONOCYTES 7.3 % (2-11); NEUTROPHILS 87.3 % (40-80); PLATELET COUNT 151 10x3/uL (130-400); RBC 4.45 10x6/uL (4.20-6.10); RDW 14.7 % (11.5-14.5)
[2016-07-15 04:49] LABS: WBC 14.9 10x3/uL (4.8-10.8)
--- NOTE | 2016-07-15 05:00 | NUR ---
Pt vomiting approx 600cc thin, brown gastric content. Oral care completed. Skin care with partial linen changes completed.
[2016-07-15 05:12] LABS: ALBUMIN 2.8 g/dL (3.4-5.0); ANION GAP 9.9 mmol/L (8-16); BILIRUBIN - TOTAL 0.5 mg/dL (0.2-1.3); CALCIUM 8.4 mg/dL (8.5-10.1); CARBON DIOXIDE 30.3 mmol/L (21.0-32.0); CREATININE - SERUM 1.2 mg/dL (0.6-1.3); POTASSIUM - SERUM 4.2 mmol/L (3.5-5.1); PROTEIN - SERUM 6.3 g/dL (6.4-8.2)
--- NOTE | 2016-07-15 05:20 | NUR ---
Pt denies nausea at this time. Cool cloth to forehead. Ice water provided per pt request.
--- NOTE | 2016-07-15 07:25 | NUR ---
UPON ASSESSMENT NOTED PT TO HAVE HYPOACTIVE BOWEL SOUNDS. PT HAS A RECTAL TUBE FOR WATERY STOOLS, BLACK IN COLOR. PT COMPLAINT OF NAUSEA. RECIEVES ZOFRAN PRN. WHILE ASSESSING THIS PT, NOTED HE THEN STATED HE NEEDED THE EMESIS BAG. NOTED 200ML OF WATERY DARK COLORED CONTENTS INTO BAG. SPECIMEN COLLECTED AND SENT TO LAB FOR A GASTRIC GUAIC. WILL CONTINUE TO OBSERVE.
--- NOTE | 2016-07-15 07:44 | NUR ---
PT PLACED NPO PER NUSING JUDGEMENT UNTIL PHYSICIAN ORDERS OTHERWISE.
--- NOTE | 2016-07-15 08:01 | NUR ---
CALLED DR BAEZ TO GIVE UPDATE AND TO SEE FOR FURTHER ORDERS. NOTED ORDER FOR KUB TO RULE OUT ILEUS AND NGT FOR DECOMPRESSION. WILL PLACE ORDERS.
--- NOTE | 2016-07-15 08:15 | NUR ---
NGT PLACED, 16F. VERIFIED VIA AUSCULATION, GASTRIC FLUIDS EMPTYING INTO SUCTION CONTAINER, DARKISH BLACK IN COLOR AND LIQUID. SET TO LOW INTTERMITTENT SUCTIONING. WILL CONTINUE TO OBSERVE.
--- NOTE | 2016-07-15 08:29 | NUR ---
NOTED SUCTION CONTAINER FULL, 1100ML DARK LIQUID CONTENTS. CANISTER CHANGED AT THIS TIME. PT STATES HE IS BEGINNING TO FEEL SOME RELIEF. WILL CONTINUE TO OBSERVE.
--- NOTE | 2016-07-15 09:03 | NUR ---
PT SIGNIFICANT OTHER CALLED, UPDATE GIVEN. NO FURTHER QUESTIONS.
--- NOTE | 2016-07-15 12:30 | NUR ---
SITTING UP IN BED VISITING WITH SIGNIFICANT OTHER. DENIES ANY NEEDS. STATES HE FEELS MUCH BETTER SINCE THE NGT WAS PLACED. WILL CONTINUE PLAN OF CARE.
--- NOTE | 2016-07-15 14:28 | NUR ---
SITTING UP IN BED AWAKE AT THIS TIME. DENIES ANY DISCOMFORT OR NAUSEA AT THIS TIME. NO ACUTE DISTRESS.
--- NOTE | 2016-07-15 17:30 | NUR ---
PARTIAL LINEN CHANGE PROVIDED, OLD WRINKLY LINEN REPLACED WITH NEW LINENS. RECTAL TUBE NOTED TO FUNCTION WELL. NO LEAKAGE NOTED. NO ACUTE DISTRESS NOTED. WILL CONTINUE PLAN OF CARE.
--- NOTE | 2016-07-15 18:05 | NUR ---
UP IN BED VISITING WITH DAUGHTER AT THIS TIME. DENIES ANY NEEDS. NO ACUTE DISTRESS NOTED. WILL CONTINUE PLAN OF CARE.
--- NOTE | 2016-07-15 19:30 | NUR ---
ADDENDUM; ALL TUBING AND LINES CHECKED AND ARE CURRENT NO DUE TO BE CHANGED
--- NOTE | 2016-07-15 19:30 | NUR ---
REPORT RECEIVED AND CARE ASSUMED. INITIAL SHIFT ASSESSMENT COMPLETED. PT AAOX4. DENIES NEEDS AND PAIN. ABLE TO HELP WITH TURNING AND REPOSITIONING SELF. PT DENIES NAUSEA NOTE RIGHT NARE NG LIS WITH LIGHT DON OUTPUT IN TUBING. ABD IS STILL SOMEWHAT FIRN. BOWEL SOUNDS ARE ACTIVE AND RECTAL TUBE IN PLACE. NO OUTPUT NOTED IN BAG/TUBING. WAS REPORTED TO HAVE BEEN CHANGED TO NEW BAG JUST PRIOR TO SHIFT CHANGE. WILL COLLECT STOOL SPECIMEN PER ORDER WHEN AVAILABLE. PT IS FINISHING UP UPDRAFT TREATMENT PROVIDED BY RT AT BEGINNING OF ASSESSMENT AND DEMONISTRATED 1000ML WITH GOOD EFFORT AND TECHNIQUE WELL FLUTTER FOR RT AT CONCLUSION OF ASSESSMENT. PT IS ON 6L OF O2 AND IS TOLERATING WELL. PILLOWS ARE USED TO ELEVATE ARMS AND HEELS ARE FLOATED. PT WITH SIGNIFICANT DECREASE IN AMOUNT OF EDEMA SINCE THIS NURSES PREVIOUS ASSESSMENT LAST WEEK. PT IS MONITORED PER STANDARD ICU PROTOCOL WITH ALL ALARMS VERIFIED AND CHECKED.
--- NOTE | 2016-07-15 21:00 | NUR ---
PT WATCHING SUPERBOWL AND IS REFUSING BATH AND ORAL CARE AT THIS TIME. STATES WILL TAKE A BATH IN AM AND AGREES TO HS HYGIENE AFTER HIS SHOW. ORIENTED X 4 WILL COMPLY WITH PT'S WISHES. ELDER CARE DONE PRIOR TO ADMINISTRATION OF [place]STATIN POWDER
--- NOTE | 2016-07-15 22:30 | NUR ---
PT USED CALL LIGHT TO NOTIFY THAT HE NOW WANTS A BATH. COMPLETE BED BATH DONE WITH LOTION AND POWDER APPLIED APPROPRIATE. ORAL CARE PROVIDED. PT REFUSED FACIAL GROOMING STATING HE WANTED HIS SIGNIFICANT OTHER TO DO THIS TOMORROW. PT WAS ABLE TO ASSIST WITH REPOSITIONING. PT'S ARMS ARE VERY WEAK. PT UNABLE TO BRUSH OWN TEETH ETC. LEGS ARE WEAK BUT LESS SO THAN THE ARMS. SHIFT REASSESSMENT COMPLETED AFTER BATH COMPLETED. APPROXIMATLY 50 ML NOTED FROM THE NGT AND ABD IS SOFT AT THIS TIME. NO OTHER SIGNIFICANT CHANGES NOTED.
[2016-07-16] VITALS (23 sets, daily range): BP systolic 129–157; BP diastolic 61–99
--- NOTE | 2016-07-16 01:00 | NUR ---
PT AWAKE AT THIS TIME. HAS BEEN SLEEPING WELL. PT EXCITED SAYING HE HAS MORE STRENGTH IN ARMS. NOTE PT IS ABLE TO LIFT ARMS UP TO WIPE AT FACE AND WITH MORE CONTROL THAN AT 1ST OF SHIFT. PT ASSISTED WITH TURNING AND REPOSITIONED. PT IS EXPECTED TO WORK WITH PHYSICAL THERAPY IN AM.
--- NOTE | 2016-07-16 03:00 | NUR ---
SHIFT REASSESSMENT COMPLETED. ONLY SCANT DRAINAGE IN FECAL BAG. STOOL PRESENT IS LIQUID. NO ACUTE CHANGES. PT IS MORE MOBILE REPOSITIONING SELF IN THE BED WITH MUCH LESS ASSISTANCE.
--- NOTE | 2016-07-16 04:45 | NUR ---
STOOL SPECIMEN COLLECTED FROM RECTAL TUBING. ONLY MINIMAL AMOUNT OF OUTPUT STOOL LIQUID BROWN. RECTAL TUBE BULB DEFLATED AND REMOVED IN ANTICIPATION OF PHYSICAL THERAPY TODAY AND PT IS VERY AAOX4 GAINING STRENGTH RAPIDLY. HE HAS IMPROVED THROUGHOUT THIS SHIFT WITH STRENGTH AND MOBILITY. PT SLEPT WELL BUT HAS AWAKEN EARLY IS HIS HABIT PER HIS REPORT.
[2016-07-16 05:11] LABS: BASOPHILS 0.1 % (0.0-2.0); EOSINOPHILS 0 % (0-7); HEMATOCRIT 41.2 % (42.0-54.0); HEMOGLOBIN 13.4 g/dL (13.5-17.5); LYMPHOCYTES 2.9 % (15-50); MCH 30.3 pg (26.0-34.0); MCHC 32.5 g/dL (31.0-37.0); MEAN PLATELET VOLUME 10.7 fL (7.4-10.4); MONOCYTES 2.3 % (2-11); NEUTROPHILS 93.7 % (40-80); PLATELET COUNT 137 10x3/uL (130-400); RBC 4.42 10x6/uL (4.20-6.10); WBC 12.8 10x3/uL (4.8-10.8)
[2016-07-16 05:26] LABS: MCV 93.2 fL (80.0-100.0)
[2016-07-16 05:43] LABS: ALBUMIN 2.7 g/dL (3.4-5.0); ANION GAP 11.7 mmol/L (8-16); BILIRUBIN - TOTAL 0.7 mg/dL (0.2-1.3); CALCIUM 8.1 mg/dL (8.5-10.1); CARBON DIOXIDE 30.7 mmol/L (21.0-32.0); CREATININE - SERUM 1.1 mg/dL (0.6-1.3); MAGNESIUM - SERUM 2.8 mg/dL (1.8-2.4); PHOSPHOROUS 3.8 mg/dL (2.5-4.9); POTASSIUM - SERUM 4.4 mmol/L (3.5-5.1); PROTEIN - SERUM 5.8 g/dL (6.4-8.2)
--- NOTE | 2016-07-16 05:57 | NUR ---
PT HAS HAD ONLY 1 BRIEF EPISODE OF UNCONTROLLED AFIB LASTING LESS THAN 1 MIN. OTHERWISE HAS BEEN SR WITH FREQUENT PAC'S CARDIZEM TURNED OFF AT THIS TIME PER . ORDER TO WEAN
--- NOTE | 2016-07-16 07:30 | NUR ---
SHIFT ASSESSMENT VIA FLOWSHEET, SEE FOR DETAILS.
--- NOTE | 2016-07-16 09:05 | NUR ---
NUTRITION MONITORING & EVAL EXTUBATED. NG TUBE IN PLACE. WILL PROVIDE DIET TOLERATED WHEN RESUMED. RD FOLLOWING
--- NOTE | 2016-07-16 09:55 | NUR ---
PT OOB TO CHAIR.
--- NOTE | 2016-07-16 11:30 | NUR ---
REASSESSMENT VIA FLOWSHEET, SEE FOR DETAILS.
--- NOTE | 2016-07-16 13:54 | NUR ---
SPOKE WITH DR PRO VIA PHONE, NEW ORDER RECEIVED.
--- NOTE | 2016-07-16 14:30 | NUR ---
NGT REMOVED PER DR NUR.
--- NOTE | 2016-07-16 15:30 | NUR ---
REASSESSMENT VIA FLOWSHEET, SEE FOR DETAILS.
--- NOTE | 2016-07-16 19:30 | NUR ---
REPORT RECEIVED AND CARE ASSUMED. INITIAL SHIFT ASSESSMENT COMPLETED SEE FLOWSHEET. PT AAOX4 SPEECH CLEAR. DENIES PAIN AND NAUSEA. CONTINUES ON 5L O2 PER N/C PT DOES USE HOME O2 PER HIS REPORT. IV TUBING CHECKED AND DUE TO BE CHANGED TODAY. PT MONITORED PER STANDARD ICU PROTOCOL WITH ALL ALARMS SET AND VERIFIED.
--- NOTE | 2016-07-16 21:25 | NUR ---
NEW TUBING USED WHEN HANGING NEW BAG IVF. LABELED AND DATED.
--- NOTE | 2016-07-16 23:00 | NUR ---
SHIFT REASSESSMENT COMPLETED WITH NO SIGNIFICANT CHANGES. PT HAS REFUSED A BATH TONIGHT STATING HE WISHES TO TAKE IT IN THE MORNING.
[2016-07-17] VITALS (14 sets, daily range): BP systolic 119–137; BP diastolic 42–97
--- NOTE | 2016-07-17 01:15 | NUR ---
PT C/O NAUSEA STATING HE IS "COUGHING SO HARD TRYING TO GET SOMETHING UP IT IS MAKING ME ALMOST VOMIT". MEDS GIVEN PER MAR
--- NOTE | 2016-07-17 02:00 | NUR ---
NO FURTHER NAUSEA
--- NOTE | 2016-07-17 03:00 | NUR ---
SHIFT REASSESSMENT COMPLETED. SEE FLOWSHEET NO SIGNIFICANT CHANGE
[2016-07-17 04:55] LABS: BASOPHILS 0.1 % (0.0-2.0); EOSINOPHILS 0 % (0-7); HEMATOCRIT 42.4 % (42.0-54.0); HEMOGLOBIN 13.8 g/dL (13.5-17.5); IMMATURE GRANULOCYTES 1.1 % (0-5); LYMPHOCYTES 3.5 % (15-50); MCH 29.9 pg (26.0-34.0); MCHC 32.5 g/dL (31.0-37.0); MEAN PLATELET VOLUME 10.7 fL (7.4-10.4); MONOCYTES 2.8 % (2-11); NEUTROPHILS 92.5 % (40-80); PLATELET COUNT 159 10x3/uL (130-400); RBC 4.61 10x6/uL (4.20-6.10); RDW 14.1 % (11.5-14.5)
[2016-07-17 04:57] LABS: WBC 16.6 10x3/uL (4.8-10.8)
--- NOTE | 2016-07-17 05:00 | NUR ---
PT ASSISTED TO SIT ON THE SIDE OF THE BED PER HIS REQUEST. TOLERATING WELL, BALANCE GOOD
[2016-07-17 05:12] LABS: CALC OSMOLALITY 290 mosm/kg (275-300); CALCIUM 8.4 mg/dL (8.5-10.1); CARBON DIOXIDE 30.9 mmol/L (21.0-32.0); CHLORIDE - SERUM 105 mmol/L (98-107); GLUCOSE 133 mg/dL (74-106); MAGNESIUM - SERUM 2.7 mg/dL (1.8-2.4); POTASSIUM - SERUM 4.8 mmol/L (3.5-5.1); SODIUM 140 mmol/L (136-145); UREA NITROGEN 41 mg/dL (7-18); eGFR NON AFRICAN AMERICAN 77 mL/min (90-120)
--- NOTE | 2016-07-17 05:45 | NUR ---
PT ASSISTED BACK INTO BED. PT DID TOLERATE SITTING UP BALANCED WELL WITH THIS NURSE REMAINING AT BEDSIDE WHILE HE WAS SITTING, FOR SAFETY
--- NOTE | 2016-07-17 06:30 | NUR ---
NO VISITORS AT THIS TIME. LEFT F/A IV REMOVED DUE TO DATE PLACED IT WAS DUE TO BE REMOVED. TIP INTACT
--- NOTE | 2016-07-17 08:26 | NUR ---
CL BREAKFAST TRAY SERVED AND PT FEEDS SELF, VSS, AFEBRILE, DENIES C/O.
--- NOTE | 2016-07-17 11:04 | NUR ---
1100- PT OOB TO CHAIR, DID HAVE DARK LOOSE BM THIS AM X 1.
--- NOTE | 2016-07-17 17:20 | NUR ---
1720-REPORT CALLED TO NURSING STAFF ON THE FLOOR.
--- NOTE | 2016-07-17 18:28 | NUR ---
PATIENT SITTING UP IN BED EATING FULL LIQUIDS AT THIS TIME. IV NTACT. NO COMPLAINTS. FAMILY AT BEDSIDE. CALL LIGHT WITHIN REACH. VS STABLE.
[2016-07-17 20:08] LABS: AEROBE ID Final report (())
[2016-07-18 01:00] VITALS: BP 133/62
--- NOTE | 2016-07-18 04:40 | NUR ---
PORTABLE CXR DONE PER SWIMMING POOL PLASTERER HELPER. PT C/O PAIN IN LEFT WRIST.
[2016-07-18 05:00] VITALS: BP 138/72
[2016-07-18 07:00] LABS: BASOPHILS 0 % (0.0-2.0); EOSINOPHILS 0 % (0-7); HEMOGLOBIN 13.6 g/dL (13.5-17.5); IMMATURE GRANULOCYTES 1.2 % (0-5); LYMPHOCYTES 4.9 % (15-50); MCH 30.2 pg (26.0-34.0); MCHC 33.2 g/dL (31.0-37.0); MCV 90.9 fL (80.0-100.0); MEAN PLATELET VOLUME 10.4 fL (7.4-10.4); MONOCYTES 4.5 % (2-11); NEUTROPHILS 89.4 % (40-80); PLATELET COUNT 147 10x3/uL (130-400); RBC 4.51 10x6/uL (4.20-6.10); WBC 13.6 10x3/uL (4.8-10.8)
[2016-07-18 07:01] LABS: CALC OSMOLALITY 289 mosm/kg (275-300); CARBON DIOXIDE 29.4 mmol/L (21.0-32.0); CHLORIDE - SERUM 106 mmol/L (98-107); GLUCOSE 133 mg/dL (74-106); MAGNESIUM - SERUM 2.4 mg/dL (1.8-2.4); POTASSIUM - SERUM 4.6 mmol/L (3.5-5.1); SODIUM 140 mmol/L (136-145); UREA NITROGEN 38 mg/dL (7-18); eGFR NON AFRICAN AMERICAN 77 mL/min (90-120)
--- NOTE | 2016-07-18 07:25 | NUR ---
PATIENT RECEIVED ALERT IN HIGH NEGRETE POSITION. NO SIGNS OF DISTRESS NOTED. SIDE RAILS UP X2. BED IN LOW POSITION. CALL LIGHT IN REACH.
[2016-07-18 08:03] VITALS: BP 140/75
--- NOTE | 2016-07-18 08:18 | NUR ---
PATIENT ALERT IN HIGH NEGRETE POSITION. RESPIRATIONS EVEN AND UNLABORED. SCHEDULED MEDICATION ADMINISTERED. IV TUBING CHANGED PER PROTOCOL. LEFT PICC DRESSING CHANGED PER PROTOCOL USING CENTRAL DRESSING LINE KIT. NO REDNESS OR OR INFLAMMATION NOTED TO SITE. CLEANSED WITH PROVIDED CLEANSER, NEW BIOPATCH AND TEGADERM PLACED. WELL TOLERATED. SWAB CAPS IN PLACE. DENIES NEEDS. SIDE RAILS UP X2. BED IN LOW POSITION. CALL LIGHT IN REACH.
--- NOTE | 2016-07-18 10:59 | NUR ---
Rehab Prescreening Consult recieved and the chart has been reviewed. He meets criteria for inpatient rehab. He will be accepted when the physician and the patient feel he can participate in 3 hrs of therapy daily 5 days a week. The CM will be made aware. Katherine Franco RN Clinical Liaison, Rehab
--- NOTE | 2016-07-18 11:15 | NUR ---
NOTIFIED BY RT THAT PATIENT O2 83% ON 5L NASAL CANNULA. CURRENTLY BEING PLACED ON OXYMIZER BY RT.
--- NOTE | 2016-07-18 11:30 | NUR ---
PHYSICIAN NOTIFIED OF OXYGEN LEVEL. WILL AWAIT ORDERS.
--- NOTE | 2016-07-18 12:00 | NUR ---
LASIX ADMINISTERED PER ORDER. PATIENT 88% ON 6L OXYMIZER.
[2016-07-18 12:36] VITALS: BP 122/67
--- NOTE | 2016-07-18 13:00 | NUR ---
PATIENT 83%ON 6L OXYMIZER. RT NOTIFIED. INSTRUCTED TO INCREASE TO 10L OXYMIZER AND THEY WILL BE UP TO ASSESS PATIENT.
--- NOTE | 2016-07-18 13:16 | EC ---
PATIENT:AYSHA FELIX DATE OF SERVICE: 07/09/16 SEX: M MEDICAL RECORD: [id number] DATE OF : 39 LOCATION:[facility] AGE OF PATIENT: 80 ADMISSION DATE: 07/09/16 REFERRING PHYSICIAN: INTERPRETING PHYSICIAN: SIRI ESCOBAR M.D. ECHOCARDIOGRAM REPORT ECHO CHARGES 4 ECHO COMPLETE CLINICAL DIAGNOSIS: SEPSIS / HYPOTENSION HX OF CAD/STENT/COPD ECHOCARDIOGRAPHIC MEASUREMENTS (adult normal given) AC root (d.<3.7cm) 4.7 LV Septum d (<1.2 cm> 1.8 Valve Excursion 2.7 LV Septum (systole) 2.0 Left Atria (s.<4.0cm> 4.4 LVPW d(<1.2cm) 1.8 RV (d.<2.3cm) 4.3 LVPW (sytole) 2.1 LV diastole(<5.6CM) 6.5 MV E-F(>70mm/sec) LV systole 5.6 LVOT Diameter 2.7 MV exc.(>10mm) 1.6 Est.ejection fraction (50-75%) Pericardial Effusion N DOPPLER: LVIT A 81.0 E 59.0 LA RVSP 21 LVOT 104 AOP1/2T Asc. Ao 148 RVOT 120 RA PA 159 AV Gradient Peak 8.8 AV Mean 5.63 AV Area 4.2 MV Gradient Peak 2.42 MV Mean 0.91 MV Area COMMENTS: Orthopedic Nurse: Du DASH Web Content Executive:2 Dr. Escobar TAPE# PACS DATE OF SERVICE: 07/10/2016 REFERRING PHYSICIAN: Diane Yu MD. INDICATION: Sepsis, hypotension, coronary artery disease. DESCRIPTION: Left ventricle is mildly dilated. Left ventricular hypertrophy is present. Estimated ejection fraction is in the order of 50% to 55%. Mitral valve is structurally normal. There is no regurgitation or prolapse seen. Left atrium is normal in size. The aortic valve is trileaflet. There is no stenosis ECHOCARDIOGRAM REPORT [id number] AYSHA FELIX or regurgitation seen. The ascending aorta is dilated at 4.7 cm. Right ventricle is mildly dilated. Tricuspid valve is structurally normal. There is mild regurgitation seen. Right atrium is normal size. There is no pericardial effusion noted. IMPRESSION: 1. Mildly dilated left ventricle with preserved ejection fraction of 50% to 55%. 2. 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 3. Mild tricuspid regurgitation. TRANSINT:[id number] Voice Confirmation ID: [id number] DOCUMENT ID: [id number] SIRI ESCOBAR M.D. at 1316 CC: [id number] DICTATION DATE: 07/10/16 1607 PSYCHIATRIC AIDE: 07/10/16 2219 ADM IN [place] [id number] [place] [address]
--- NOTE | 2016-07-18 13:20 | NUR ---
PATIENT 88% ON 10L OXYMIZER AT REST. RT AT BEDSIDE TO DRAW ORDERED ABG
--- NOTE | 2016-07-18 13:52 | NUR ---
PATIENT ALERT IN MID NEGRETE POSITION VISITING WITH GUEST. RESPIRATIONS EVEN AND UNLABORED. SIDE RAILS UP X2. BED IN LOW POSITION. CALL LIGHT IN REACH.
--- NOTE | 2016-07-18 15:30 | NUR ---
PATIENT OFF FLOOR TO CT VIA BED
--- NOTE | 2016-07-18 16:00 | NUR ---
PATIENT BACK TO ROOM FROM CT VIA BED.
[2016-07-18 16:02] VITALS: BP 137/64
--- NOTE | 2016-07-18 18:15 | NUR ---
ALERT IN BED WITH AT BEDSIDE. NO SIGNS OF DISTRESS NOTED. DENIES NEEDS. SIDE RAILS UP X2. BED IN LOW POSITION. CALL LIGHT IN REACH.
[2016-07-18 21:00] VITALS: BP 116/73
[2016-07-19 01:00] VITALS: BP 122/70
[2016-07-19 05:00] VITALS: BP 124/69
[2016-07-19 05:31] LABS: BASOPHILS 0.1 % (0.0-2.0); EOSINOPHILS 0 % (0-7); HEMATOCRIT 43.9 % (42.0-54.0); HEMOGLOBIN 14.3 g/dL (13.5-17.5); IMMATURE GRANULOCYTES 1.2 % (0-5); LYMPHOCYTES 4.6 % (15-50); MCH 29.8 pg (26.0-34.0); MCHC 32.6 g/dL (31.0-37.0); MCV 91.5 fL (80.0-100.0); MEAN PLATELET VOLUME 11.2 fL (7.4-10.4); MONOCYTES 4.4 % (2-11); NEUTROPHILS 89.7 % (40-80); PLATELET COUNT 167 10x3/uL (130-400); WBC 15.6 10x3/uL (4.8-10.8)
[2016-07-19 05:55] LABS: ALBUMIN 2.6 g/dL (3.4-5.0); ALKALINE PHOSPHATASE 54 U/L (46-116); ALT (SGPT) 289 U/L (10-68); BILIRUBIN - TOTAL 0.55 mg/dL (0.2-1.3); CALC OSMOLALITY 288 mosm/kg (275-300); CALCIUM 8.4 mg/dL (8.5-10.1); CARBON DIOXIDE 30.3 mmol/L (21.0-32.0); CHLORIDE - SERUM 105 mmol/L (98-107); GLUCOSE 103 mg/dL (74-106); MAGNESIUM - SERUM 2.4 mg/dL (1.8-2.4); POTASSIUM - SERUM 4.4 mmol/L (3.5-5.1); PROTEIN - SERUM 5.7 g/dL (6.4-8.2); SODIUM 140 mmol/L (136-145); UREA NITROGEN 41 mg/dL (7-18); eGFR NON AFRICAN AMERICAN 77 mL/min (90-120)
--- NOTE | 2016-07-19 07:10 | NUR ---
PATIENT RECEIVED ALERT IN BED. NO SIGNS OF DISTRESS NOTED. DENIES NEEDS. SIDE RAILS UP X2. BED IN LOW POSITION. CALL LIGHT IN REACH.
[2016-07-19 07:53] VITALS: BP 110/71; BP 131/65
--- NOTE | 2016-07-19 08:22 | NUR ---
SITTING UP ON SIDE OF BED ALERT. NO SIGNS OF DISTRESS NOTED. SCHEDULED MEDICATION ADMINISTERED. SIDE RAILS UP X2. BED IN LOW POSITION. CALL LIGHT IN REACH.
--- NOTE | 2016-07-19 11:05 | NUR ---
PATIENT SITTING UP IN CHAIR AT BEDSIDE. RESPIRATIONS EVEN AND UNLABORED. SCHEDULED MEDICATION ADMINISTERED. CALL LIGHT IN REACH.
[2016-07-19 11:59] VITALS: BP 104/56
--- NOTE | 2016-07-19 14:20 | NUR ---
PATIENT ALERT IN BED WITH FAMILY PRESENT. SCHEDULED MEDICATION ADMINISTERED. SIDE RAILS UP X2. BED IN LOW POSITION. CALL LIGHT IN REACH. FAMILY PRESENT.
[2016-07-19 16:14] VITALS: BP 101/85
--- NOTE | 2016-07-19 17:20 | NUR ---
ALERT IN BED WITH FAMILY PRESENT. NO SIGNS OF DISTRESS NOTED. CONSENT OBTAINED FOR SCHEDULED BRONCHOSCOPY. DENIES NEEDS. SIDE RAILS UP X2. BED IN LOW POSITION. CALL LIGHT REACH.
--- NOTE | 2016-07-19 19:00 | NUR ---
PATIENT SITTING UP IN BED VISITING WITH FAMILY. HOB 45 DEGREES. AAOX4. RR EVEN AND UNLABORED. O2 @ 10L VIA OXYMIZER. CONT. PULSE OX ON. LEFT PICC PATENT WITH DRESSING CDI. ELDER SECURED WITH STATLOCK AND DRAINING TO GRAVITY. TELEMETRY ON. PLACED SCD'S ON PATIENT PER ORDER. B/A ON. SRX2. BED LOW. CALL LIGHT WITHIN REACH.
[2016-07-19 20:38] VITALS: BP 120/74
[2016-07-20] VITALS: BP 112/63
[2016-07-20 04:00] VITALS: BP 121/61
[2016-07-20 05:59] LABS: BASOPHILS 0.1 % (0.0-2.0); EOSINOPHILS 0 % (0-7); HEMATOCRIT 41.8 % (42.0-54.0); HEMOGLOBIN 13.8 g/dL (13.5-17.5); IMMATURE GRANULOCYTES 0.7 % (0-5); LYMPHOCYTES 5.2 % (15-50); MCV 90.9 fL (80.0-100.0); MEAN PLATELET VOLUME 10.9 fL (7.4-10.4); MONOCYTES 4.2 % (2-11); NEUTROPHILS 89.8 % (40-80); PLATELET COUNT 161 10x3/uL (130-400); RDW 14.3 % (11.5-14.5); WBC 16.9 10x3/uL (4.8-10.8)
[2016-07-20 06:10] LABS: CALCIUM 8.3 mg/dL (8.5-10.1); CARBON DIOXIDE 31.9 mmol/L (21.0-32.0); MAGNESIUM - SERUM 2.2 mg/dL (1.8-2.4); POTASSIUM - SERUM 3.9 mmol/L (3.5-5.1)
[2016-07-20 06:11] LABS: CREATININE - SERUM 1.3 mg/dL (0.6-1.3)
--- NOTE | 2016-07-20 07:00 | NUR ---
REPORT RECIEVED ASSUMED CARE. PATIENT IN BED WITH IV INTACT. HOB UP, O2 ON. NO COMPLAINTS OR SIGNS OF DISTRESS, CALL LIGHT WITHIN REACH.
[2016-07-20 08:03] VITALS: BP 118/57
--- NOTE | 2016-07-20 10:20 | NUR ---
PATIENT TO GET BRONCH AT THIS TIME.
--- NOTE | 2016-07-20 11:15 | NUR ---
PATIENT BACK TO ROOM, VS STABLE. O2 SATS 93 ON 10 L OXIMIZER. NO COMPLAINTS OR SIGNS OF DISTRESS. CALL LIGHT WITHIN REACH.
--- NOTE | 2016-07-20 13:00 | NUR ---
PATIENT TOLERATED FULL LIQUIDS AT THIS TIME WITH NO PROBLEMS. IV INTACT. FAMILY AT BEDSIDE. CALL DIAMOND MATTSON.
[2016-07-20 15:57] VITALS: BP 100/53
--- NOTE | 2016-07-20 17:40 | NUR ---
PATIENT TOLERATED REGULAR DIET WITH NO PROBLEMS. IV INTACT. O2 91 ON OXIMIZER AT THIS TIME. NO COMPLAINTS. FAMILY AT BEDSIDE. CALL LIGHT WITHIN REACH.
--- NOTE | 2016-07-20 18:50 | NUR ---
PATIENT IN BED WITH NO COMPLAINTS AT THIS TIME. IV INTACT. FAMILY AT BEDSIDE. CALL LIGHT WITHIN REACH.
--- NOTE | 2016-07-20 19:00 | NUR ---
PATIENT SITTING IN BED RECEIVING BREATHING TREATMENT. HOB 45 DEGREES. AAOX4. RR EVEN AND UNLABORED. O2 @ 10L VIA OXYMIZER. 0 S/S OF DISTRESS. DENIES PAIN AT THIS TIME. LEFT PICC S/L WITH DRESSING IN PLACE. ELDER SECURED WITH STATLOCK AND DRAINING TO GRAVITY. SCD'S ON. TELEMETRY ON. FAMILY AT BEDSIDE. B/A ON. SRX2. BED LOW. CALL LIGHT WITHIN REACH.
[2016-07-20 20:00] VITALS: BP 129/84
--- NOTE | 2016-07-20 21:45 | NUR ---
ASSESSMENT COMPLETE. NIGHTIME MEDICATION GIVEN PER ORER. PICC LINE FLUSED. NO NEEDS AT THIS TIME.
[2016-07-21 00:17] VITALS: BP 106/56
[2016-07-21 03:45] VITALS: BP 130/66
--- NOTE | 2016-07-21 04:12 | NUR ---
PATIENT SLEEPING WITH NO DISTRESS NOTED. CALL LIGHT WITHIN REACH.
[2016-07-21 06:33] LABS: BASOPHILS 0.1 % (0.0-2.0); EOSINOPHILS 0 % (0-7); HEMATOCRIT 41.7 % (42.0-54.0); HEMOGLOBIN 13.9 g/dL (13.5-17.5); IMMATURE GRANULOCYTES 0.7 % (0-5); LYMPHOCYTES 5.4 % (15-50); MCH 30.1 pg (26.0-34.0); MCHC 33.3 g/dL (31.0-37.0); MCV 90.3 fL (80.0-100.0); MEAN PLATELET VOLUME 10.8 fL (7.4-10.4); MONOCYTES 4.3 % (2-11); NEUTROPHILS 89.5 % (40-80); PLATELET COUNT 160 10x3/uL (130-400); RBC 4.62 10x6/uL (4.20-6.10); RDW 14.4 % (11.5-14.5); WBC 18.1 10x3/uL (4.8-10.8)
[2016-07-21 06:42] LABS: ANION GAP 8.6 mmol/L (8-16); CALCIUM 8.2 mg/dL (8.5-10.1); CARBON DIOXIDE 32.4 mmol/L (21.0-32.0); CREATININE - SERUM 1.1 mg/dL (0.6-1.3); MAGNESIUM - SERUM 1.9 mg/dL (1.8-2.4)
--- NOTE | 2016-07-21 07:20 | NUR ---
PATIENT IS AWAKE, ALERT AND ORIENTED X'S 4. RESPIRATORY THERAPIST IS IN ROOM WITH PATIENT DOING THE FLUTTER. PATIENT DOES NOT APPEAR TO BE IN DISTRESS AT THIS TIME. DENIES NEEDS. OXYMIZER ON. CONTINUOUS PULSE OX ON. BED IN LOWEST POSITION, CALL LIGHT IN REACH. BED RAILS UP X'S 3. BED ALARM ON.
[2016-07-21 08:16] VITALS: BP 133/64
[2016-07-21 12:20] VITALS: BP 106/58
--- NOTE | 2016-07-21 13:55 | NUR ---
PATIENT AWAKE, ALERT AND ORIENTED X'S 4. PATIENT SITTING UP ON THE SIDE OF THE BED. FAMILY AT BEDSIDE. ALL DENY NEEDS AT THIS TIME. OXYMIZER ON AT 9L/MIN. NO SIGNS OF DISTRESS NOTED.
[2016-07-21 15:49] VITALS: BP 113/69
[2016-07-21 20:00] VITALS: BP 99/55
--- NOTE | 2016-07-21 20:00 | NUR ---
ASSESSMENT PER FLOWSHEET. IV PATENT LEFT UPPER ARM PICC LINE SALINE LOCK. SITE CLEAR. PT ON CONTINUOUS PULSE OX. READING SHOWS 93% ON 9LITERS PER OXYMIZER. HOB UP 45 DEGREES. SCD'S ON. SR UP X2 CALL LIGHT WITHIN REACH. TELM. SHOWS SB WITH HR 57.
[2016-07-21 20:06] LABS: AFB SPECIMEN PROCESSING Concentration (())
--- NOTE | 2016-07-21 21:30 | NUR ---
MEDS GIVEN PER MAR.
--- NOTE | 2016-07-21 22:45 | NUR ---
UP TO BR WITH HELP OF WALKER AND NURSE. VOIDED AND HAD A SMALL FORMED STOOL. ASSISTED BACK TO BED AFTER LINENS WERE CHANGED. POSITIONED FOR COMFORT.
[2016-07-22] VITALS: BP 112/58
--- NOTE | 2016-07-22 00:09 | NUR ---
MEDS GIVEN PER AUG. RESTING QUIETLY.
--- NOTE | 2016-07-22 03:30 | NUR ---
PT SLEEPING RESPIRATIONS WITH EASE AND UNLABORED. PULSE OX SHOWING HR OF 45-48. RADIAL PULSE TAKEN SHOWS 52-53.NO DISTRESS.
[2016-07-22 04:00] VITALS: BP 119/50
[2016-07-22 05:29] LABS: BASOPHILS 0 % (0.0-2.0); EOSINOPHILS 0 % (0-7); HEMATOCRIT 38.3 % (42.0-54.0); HEMOGLOBIN 12.6 g/dL (13.5-17.5); IMMATURE GRANULOCYTES 0.6 % (0-5); LYMPHOCYTES 4.4 % (15-50); MCH 29.6 pg (26.0-34.0); MCHC 32.9 g/dL (31.0-37.0); MCV 90.1 fL (80.0-100.0); MEAN PLATELET VOLUME 10.8 fL (7.4-10.4); MONOCYTES 3.6 % (2-11); NEUTROPHILS 91.4 % (40-80); PLATELET COUNT 135 10x3/uL (130-400); RBC 4.25 10x6/uL (4.20-6.10); RDW 14.2 % (11.5-14.5); WBC 14.2 10x3/uL (4.8-10.8)
[2016-07-22 05:40] LABS: ANION GAP 11.5 mmol/L (8-16); CALCIUM 7.8 mg/dL (8.5-10.1); CARBON DIOXIDE 34.2 mmol/L (21.0-32.0); CREATININE - SERUM 1.1 mg/dL (0.6-1.3); POTASSIUM - SERUM 3.7 mmol/L (3.5-5.1)
--- NOTE | 2016-07-22 06:54 | NUR ---
AWAKE MEDS GIVEN PER MAR. VOIDS IN URINAL. SITTING ON SIDE OF BED DRINKING COFFEE.
[2016-07-22 08:03] VITALS: BP 126/64
--- NOTE | 2016-07-22 08:46 | NUR ---
PT ASSESSMENT COMPLETE, PT RESTING ON SIDE OF BED, NO COMPLAINTS AT THIS TIME, HE STATES "I'M READY TO GO HOME", O2 SAT IS AT 96% ON 7L O2, PULSE 62, LUNG SOUNDS DIMINISHED ON THE LEFT SIDE, TELEMETRY SINUS 60 WITH PAC, CALL LIGHT IN REACH, WILL CONTINUE TO MONITOR.
--- NOTE | 2016-07-22 14:35 | NUR ---
PT RESTING IN CHAIR, NO COMPLAINTS, O2 94% ON 6L WITH OXIMIZER, PULSE AT 62, WILL CONTINUE TO MONITOR
[2016-07-22 16:22] VITALS: BP 135/70
[2016-07-22 20:00] VITALS: BP 128/73
--- NOTE | 2016-07-22 20:00 | NUR ---
ASSESSMENT PER FLOWSHEET. IV PATENT LEFT AC PICC LINE SALINE LOCKED. O2 ON 7L/M PER OXIMYZER. HOB UP 40 DEGREES. SR UP X2 CALL LIGHT WITHIN REACH SCD'S OFF AT THIS TIME. TELM. SHOWS ST WITH HR 123. O2 SAT=93-95%.
--- NOTE | 2016-07-22 21:30 | NUR ---
MEDS GIVEN ND MAR. BETAPACE GIVEN HEART EIAC=233.
--- NOTE | 2016-07-23 00:24 | NUR ---
REPOSITIONED IN BED. MEDS GIVEN PER AUG. NO DISTRESS. RESTING QUIETLY.
[2016-07-23 00:30] VITALS: BP 97/47
[2016-07-23 05:00] VITALS: BP 110/59
[2016-07-23 05:43] LABS: BASOPHILS 0 % (0.0-2.0); EOSINOPHILS 0 % (0-7); HEMATOCRIT 38.5 % (42.0-54.0); HEMOGLOBIN 12.6 g/dL (13.5-17.5); IMMATURE GRANULOCYTES 0.5 % (0-5); LYMPHOCYTES 4.5 % (15-50); MCH 29.6 pg (26.0-34.0); MCHC 32.7 g/dL (31.0-37.0); MCV 90.4 fL (80.0-100.0); MEAN PLATELET VOLUME 10.9 fL (7.4-10.4); MONOCYTES 2.7 % (2-11); NEUTROPHILS 92.3 % (40-80); PLATELET COUNT 147 10x3/uL (130-400); RBC 4.26 10x6/uL (4.20-6.10); WBC 15.4 10x3/uL (4.8-10.8)
--- NOTE | 2016-07-23 06:00 | NUR ---
MEDS GIVEN PER MAR.
[2016-07-23 06:06] LABS: CALC OSMOLALITY 288 mosm/kg (275-300); CALCIUM 8.1 mg/dL (8.5-10.1); CARBON DIOXIDE 36.6 mmol/L (21.0-32.0); CHLORIDE - SERUM 100 mmol/L (98-107); GLUCOSE 137 mg/dL (74-106); POTASSIUM - SERUM 3.5 mmol/L (3.5-5.1); SODIUM 140 mmol/L (136-145); UREA NITROGEN 35 mg/dL (7-18); eGFR NON AFRICAN AMERICAN 77 mL/min (90-120)
--- NOTE | 2016-07-23 07:30 | NUR ---
PATIENT RECEIVED ALERT IN HIGH NEGRETE POSITION WATCHING TV. RESPIRATIONS EVEN AND UNLABORED. SIDE RAILS UP X2. BED IN LOW POSITION. CALL LIGHT IN REACH. DENIES NEEDS.
--- NOTE | 2016-07-23 08:32 | NUR ---
PATIENT IN HIGH NEGRETE POSITION EATING BREAKFAST. TOLERATING WELL. DENIES NEEDS. SCHEDULED MEDICATION ADMINISTERED. SIDE RAILS UP X2. BED IN LOW POSITION. CALL LIGHT IN REACH.
[2016-07-23 09:12] VITALS: BP 116/68
--- NOTE | 2016-07-23 11:08 | NUR ---
SITTING UP IN CHAIR ALERT. NO SIGNS OF DISTRESS NOTED. DENIES NEEDS. CALL LIGHT IN REACH.
--- NOTE | 2016-07-23 12:05 | NUR ---
NUTRITION MONITORING & EVAL CHART REVIEWED. PT VISIT. TOLERATING REG DIET, GOOD PO INTAKE. RD FOLLOWING
[2016-07-23 12:12] LABS: FUNGUS STAIN Final report (())
[2016-07-23 12:59] VITALS: BP 96/54
--- NOTE | 2016-07-23 13:32 | NUR ---
CM REASSESSMENT NOTE: IP REFERRAL HAS BEEN ACCEPTED WAITING ON OK FROM PHYSICIANS
--- NOTE | 2016-07-23 13:35 | NUR ---
SITTING UP IN CHAIR AT BEDSIDE WITH PRESENT. RESPIRATIONS EVEN AND UNLABORED. CALL LIGHT IN REACH.
--- NOTE | 2016-07-23 15:45 | NUR ---
PATIENT IN MID NEGRETE POSITION RESTING WITH EYES CLOSED. RESPIRATIONS EVEN AND UNLABORED. SIDE RAILS UP X2. BED IN LOW POSITION. CALL LIGHT IN REACH. WILL CONTINUE TO MONITOR.
[2016-07-23 17:33] VITALS: BP 113/62
--- NOTE | 2016-07-23 18:30 | NUR ---
PATIENT ALERT IN HIGH NEGRETE POSITION. NO SIGNS OF DISTRESS NOTED. SCHEDULED MEDICATION ADMINISTERED. SIDE RAILS UP X2. BED IN LOW POSITION. CALL LIGHT IN REACH.
[2016-07-23 21:17] VITALS: BP 118/59
--- NOTE | 2016-07-24 02:00 | NUR ---
PT IN BED WITH NO DISTRESS. RESPIRATIONS ARE EVEN AND UNLABORED. SIDE RAILS X 2. BED LOW. CALL LIGHT IN REACH.
[2016-07-24 04:35] LABS: BASOPHILS 0 % (0.0-2.0); EOSINOPHILS 0.3 % (0-7); HEMATOCRIT 37.1 % (42.0-54.0); HEMOGLOBIN 12.4 g/dL (13.5-17.5); IMMATURE GRANULOCYTES 0.7 % (0-5); LYMPHOCYTES 5.9 % (15-50); MCH 30.2 pg (26.0-34.0); MCHC 33.4 g/dL (31.0-37.0); MCV 90.3 fL (80.0-100.0); MONOCYTES 3.8 % (2-11); NEUTROPHILS 89.3 % (40-80); PLATELET COUNT 124 10x3/uL (130-400); RBC 4.11 10x6/uL (4.20-6.10); WBC 14.1 10x3/uL (4.8-10.8)
[2016-07-24 04:47] LABS: CALC OSMOLALITY 283 mosm/kg (275-300); CALCIUM 8.2 mg/dL (8.5-10.1); CARBON DIOXIDE 37.7 mmol/L (21.0-32.0); CHLORIDE - SERUM 100 mmol/L (98-107); GLUCOSE 113 mg/dL (74-106); POTASSIUM - SERUM 3.4 mmol/L (3.5-5.1); SODIUM 138 mmol/L (136-145); UREA NITROGEN 32 mg/dL (7-18); eGFR NON AFRICAN AMERICAN 77 mL/min (90-120)
--- NOTE | 2016-07-24 06:11 | NUR ---
PATIENT HEART RATE HAS RANGED FROM THE 40's TO 120's WITH TELE SHOWING SINUS JASON TO A-FLUTTER TO A-FIB WITH THE OCCASIONAL PVC.
[2016-07-24 08:12] VITALS: BP 112/50
--- NOTE | 2016-07-24 08:30 | NUR ---
AWAKE AND ALERT. ORIENTED X3. NO C/O AT THIS TIME. LUNGS ARE CLEAR BUT DIMINISHED SLIGHTLY. NO COUGH NOTED. SKIN IS INTACT WITHOUT REDNESS. LEFT PICC IS PATENT WITHOUT REDNESS AT INSERTION SITE. DR. OCLE WAS HERE TO SEE PATIENT. SITTING UP IN CHAIR AT BEDSIDE EATING BREAKFAST. DENIES NEEDS.
--- NOTE | 2016-07-24 10:30 | NUR ---
UP TO SHOWER WITH SET UP ASSISTANCE. NO NEEDS EXPRESSED.
[2016-07-24] MEDS ORDERED: BROVANA15 MCG/2 M INH (10:45)
[2016-07-24] MEDS ORDERED: ALBUTEROL2.5 MG/3 M UPD (10:45)
[2016-07-24] MEDS ORDERED: LASIX INJ40 MG/4 ML IV (10:48)
[2016-07-24] MEDS ORDERED: MUCOMYST 20200 MG/M2 UPD (10:49)
[2016-07-24] MEDS ORDERED: PULMICORT0.5 MG/21 UPD (10:49)
[2016-07-24] MEDS ORDERED: MUCINEX600 MG PO (10:49)
[2016-07-24] MEDS ORDERED: NYSTATIN1 PWD TOPICAL (10:50)
[2016-07-24] MEDS ORDERED: PROTONIX40 MG PO (10:50)
[2016-07-24] MEDS ORDERED: LOVENOX30 MG/0.3 SC (10:51)
[2016-07-24] MEDS ORDERED: BETAPACE 120 M120 MG PO (10:51)
--- NOTE | 2016-07-24 11:00 | NUR ---
BLOOD DRAWN AND SENT TO LAB.
[2016-07-24 12:06] VITALS: BP 125/69
--- NOTE | 2016-07-24 12:52 | NUR ---
CM REASSESSMENT NOTE: PATIENT IS DISCHARGING TODAY TO IP REHAB. THE IMM NOTICE HAS BEEN SIGNED.
--- NOTE | 2016-07-24 17:44 | NUR ---
DRESSING TO LEFT PICC CHANGED USING STERILE TECHNIQUE DUE TO GAPPING OPEN.
[2016-07-24 20:00] VITALS: BP 105/71
--- NOTE | 2016-07-24 20:00 | NUR ---
PT RECEIVED SITTING UP ON SIDE OF BED EATING ICE CREAM. ASSESSMENT COMPLETED. PT DENIES NEEDS AT THIS TIME. BED LOW. PHONE AND CALL LIGHT IN REACH. SRX2.
--- NOTE | 2016-07-24 20:58 | NUR ---
PT REQUESTED TO ONLY TAKE HALF TABLET OF BETAPACE. PT STATES HIS PULSE DROPPED LOW THE PREVIOUS NIGHT AFTER TAKING WHOLE PILL.
--- NOTE | 2016-07-24 21:00 | NUR ---
PM MEDS GIVEN. PT DENIES NEEDS AT THIS TIME. BED LOW. PHONE AND CALL LIGHT IN REACH. SRX2.
--- NOTE | 2016-07-24 23:05 | NUR ---
PT UP USING RESTROOM AT THIS TIME. DENIES NEEDS.
[2016-07-25] VITALS: BP 120/64
--- NOTE | 2016-07-25 00:15 | NUR ---
PT SITTING UP ON SIDE OF BED. DENIES NEEDS AT THIS TIME. BED LOW. PHONE AND CALL LIGHT IN REACH. SIDE RAILS UP X2.
--- NOTE | 2016-07-25 01:05 | NUR ---
PT RESTING QUIETLY WITH EYES CLOSED. RESPIRATIONS EVEN, NON-LABORED. NO ACUTE DISTRESS NOTED AT THIS TIME. BED LOW. PHONE AND CALL LIGHT IN REACH. SRX2.
--- NOTE | 2016-07-25 03:40 | NUR ---
PT RESTING QUIETLY WITH EYES CLOSED. RESPIRATIONS EVEN, NON-LABORED. BED LOW. PHONE AND CALL LIGHT IN REACH. SRX2.
[2016-07-25 04:00] VITALS: BP 130/71
--- NOTE | 2016-07-25 05:57 | NUR ---
PT SITTING UP IN BED WATCHING TV. ADMINISTERED PROTONIX PO. PT DENIES NEEDS AT THIS TIME. BED LOW. PHONE AND CALL LIGHT IN REACH. SRX2.
[2016-07-25 06:10] LABS: BASOPHILS 0 % (0.0-2.0); EOSINOPHILS 1.3 % (0-7); HEMATOCRIT 38.1 % (42.0-54.0); HEMOGLOBIN 12.5 g/dL (13.5-17.5); IMMATURE GRANULOCYTES 1.2 % (0-5); LYMPHOCYTES 9.1 % (15-50); MCH 29.7 pg (26.0-34.0); MCHC 32.8 g/dL (31.0-37.0); MCV 90.5 fL (80.0-100.0); MEAN PLATELET VOLUME 10.6 fL (7.4-10.4); MONOCYTES 6.1 % (2-11); NEUTROPHILS 82.3 % (40-80); PLATELET COUNT 121 10x3/uL (130-400); RBC 4.21 10x6/uL (4.20-6.10); RDW 14.4 % (11.5-14.5); WBC 11.2 10x3/uL (4.8-10.8)
[2016-07-25 06:28] LABS: CALC OSMOLALITY 284 mosm/kg (275-300); CALCIUM 8.1 mg/dL (8.5-10.1); CARBON DIOXIDE 35.9 mmol/L (21.0-32.0); CHLORIDE - SERUM 100 mmol/L (98-107); CREATININE - SERUM 0.9 mg/dL (0.6-1.3); GLUCOSE 88 mg/dL (74-106); POTASSIUM - SERUM 3.4 mmol/L (3.5-5.1); SODIUM 140 mmol/L (136-145); UREA NITROGEN 31 mg/dL (7-18); eGFR NON AFRICAN AMERICAN 87 mL/min (90-120)
--- NOTE | 2016-07-25 08:10 | NUR ---
PT SEEN AND ASSESSED. NO COMPLAINTS AT PRESENT. STATES BREATHING IS GOOD TODAY WITH NO SOB NOTED OR VOICED. HOPING TO MOVE TO REHAB. CALL LIGHT IN REACH
[2016-07-25 08:18] VITALS: BP 107/62
--- NOTE | 2016-07-25 09:54 | NUR ---
REPORT CALLED TO AYESHA NASSAR. TRANSPORTED PER WC
--- NOTE | 2016-08-02 09:40 | PRO ---
PATIENT:AYSHA SANCHEZ MEDICAL RECORD: [id number] : 39 LOCATION:[id number] ADMISSION DATE: 07/09/16 PROCEDURE PERFORMED BY: DIAN NUR MD DATE OF PROCEDURE: 07/20/2016 PROCEDURE: Fiberoptic bronchoscopy. INDICATION: Mr. Sanchez is a 80-year-old gentleman, who was recently admitted with respiratory failure. He was on mechanical ventilation at that time, he has some mucous plugging and fiberoptic bronchoscopy was done. The patient did well and then his oxygen requirement increased suddenly from 3-4 liter to [address] scan showed that the mucus plugging of the bronchus intermedius on the right side and there were atelectasis of the right middle lobe. PROCEDURE IN DETAIL: After getting conscious sedation with the help of the anesthesia, fiberoptic bronchoscope was easily passed through the vocal cords. The epiglottis was normal. The vocal cords were normal, moving equally on phonation. The main trachea was normal. There was white yellowish secretion almost occluding the right main bronchus. Suction was carried out from the right middle lobe and right lower lobe. There were severe bronchitic changes, bled easily by touching the bronchoscope. There was also white yellowish secretion on the left side. The left upper lobe lingula within normal range. No endobronchial lesion was seen. There was no endobronchial lesion seen on either side. Specimen washing was obtained and sent for routine culture and sensitivity, AFB and fungus and cytology. TRANSINT:[id number] Voice Confirmation ID: [id number] DOCUMENT ID: [id number] DIAN NUR MD at 0940 CC: [id number] DICTATION DATE: 07/20/16 1113 PATIENT SUPPORT SPECIALIST: 07/20/16 1325 DIS IN 07/25/16 [place] [id number] [id number]
[2016-08-08 13:14] LABS: FUNGUS MYCOLOGY CULTURE Final report (())
[2016-08-13 15:18] LABS: FUNGUS CULTURE RESULT 1 Candida albicans (())
[2016-08-20 08:09] LABS: FUNGUS MYCOLOGY CULTURE Final report (())
[2016-08-30 12:17] LABS: ACID FAST CULTURE Negative (()); ACID FAST SMEAR Negative (())
[2016-09-12 12:17] LABS: ACID FAST CULTURE Negative (()); ACID FAST SMEAR Negative (())
== END 2016-07-25 10:06 | DRG 207 ==
LOC: D.ER 13:42 → D.MS 16:02 → D.ICU 16:02 → D.MS 07-17 17:58
PROVIDERS: Emergency Medicine; Internal Medicine Nephrology; Internal Medicine Pulmonary Disease; ADMIT Family Medicine
PROC: 0BH17EZ Insertion of Endotracheal Airway into Trachea, Via Natural or Artificial Opening (ICD-10-PCS; principal; 2016-07-09)
PROC: 5A1955Z Respiratory Ventilation, Greater than 96 Consecutive Hours (ICD-10-PCS; 2016-07-09)
PROC: 0T9B70Z Drainage of Bladder with Drainage Device, Via Natural or Artificial Opening (ICD-10-PCS; 2016-07-10)
PROC: 02HV33Z Insertion of Infusion Device into Superior Vena Cava, Percutaneous Approach (ICD-10-PCS; 2016-07-13)
PROC: B548ZZA Ultrasonography of Superior Vena Cava, Guidance (ICD-10-PCS; 2016-07-13)
PROC: 0D9670Z Drainage of Stomach with Drainage Device, Via Natural or Artificial Opening (ICD-10-PCS; 2016-07-15)
PROC: 0BC38ZZ Extirpation of Matter from Right Main Bronchus, Via Natural or Artificial Opening Endoscopic (ICD-10-PCS; 2016-07-20)
PROC: 0BCB8ZZ Extirpation of Matter from Left Lower Lobe Bronchus, Via Natural or Artificial Opening Endoscopic (ICD-10-PCS; 2016-07-20)
PROC: 0BC58ZZ Extirpation of Matter from Right Middle Lobe Bronchus, Via Natural or Artificial Opening Endoscopic (ICD-10-PCS; 2016-07-20)
PROC: 0BB38ZX Excision of Right Main Bronchus, Via Natural or Artificial Opening Endoscopic, Diagnostic (ICD-10-PCS; 2016-07-20)
PROC: 0BB58ZX Excision of Right Middle Lobe Bronchus, Via Natural or Artificial Opening Endoscopic, Diagnostic (ICD-10-PCS; 2016-07-20)
PROC: 0BB68ZX Excision of Right Lower Lobe Bronchus, Via Natural or Artificial Opening Endoscopic, Diagnostic (ICD-10-PCS; 2016-07-20)
DX: J96.22 Acute and chronic respiratory failure with hypercapnia (principal); J15.6 Pneumonia due to other Gram-negative bacteria; N17.0 Acute kidney failure with tubular necrosis; J44.0 Chronic obstructive pulmonary disease with (acute) lower respiratory infection; J44.1 Chronic obstructive pulmonary disease with (acute) exacerbation; E87.0 Hyperosmolality and hypernatremia; K56.7 Ileus, unspecified; T17.590A Other foreign object in bronchus causing asphyxiation, initial encounter; J96.21 Acute and chronic respiratory failure with hypoxia; I95.9 Hypotension, unspecified; E88.01 Alpha-1-antitrypsin deficiency; G47.33 Obstructive sleep apnea (adult) (pediatric); F41.9 Anxiety disorder, unspecified; I48.91 Unspecified atrial fibrillation; J30.9 Allergic rhinitis, unspecified; I25.10 Atherosclerotic heart disease of native coronary artery without angina pectoris; K21.9 Gastro-esophageal reflux disease without esophagitis; Z78.1 Physical restraint status; I12.9 Hypertensive chronic kidney disease with stage 1 through stage 4 chronic kidney disease, or unspecified chronic kidney disease; N18.9 Chronic kidney disease, unspecified; E87.5 Hyperkalemia; I49.1 Atrial premature depolarization; R94.31 Abnormal electrocardiogram [ECG] [EKG]; E83.51 Hypocalcemia; I25.2 Old myocardial infarction; Z95.5 Presence of coronary angioplasty implant and graft; Z99.81 Dependence on supplemental oxygen; Z87.891 Personal history of nicotine dependence; R19.7 Diarrhea, unspecified

== ENCOUNTER 2016-07-25 10:07 | Inpatient (IN) | payer MEDICARE ==
[~2016-07-25] VITALS: Ht 190.5 cm; Wt 127.5 kg
[~2016-07-25 10:07] MED LIST changes: +ALBUTEROL2.5 MG/3 M UPD; +BETAPACE 120 M120 MG PO; +BROVANA15 MCG/2 M INH; +LASIX INJ40 MG/4 ML IV; +LOVENOX30 MG/0.3 SC; +MUCINEX600 MG PO; +MUCOMYST 20200 MG/M2 UPD; +NYSTATIN1 PWD TOPICAL; +PROTONIX40 MG PO; +PULMICORT0.5 MG/21 UPD
--- NOTE | 2016-07-25 10:11 | NUR ---
RECIEVED PT AT THIS TIME VIA WHEELCHAIR. PT IS ALERT AND ORIENTED. COST ESTIMATING CLERK NOTED IN PLACE. READING NOTED AT 66 SINUS. NO ACUTE DISTRESS NOTED. WILL CONTINUE PLAN OF CARE.
--- NOTE | 2016-07-25 11:00 | NUR ---
WOUND CARE CONSULT PLACED FOR STAGE III AND SKIN TARE TO RIGHT BUTTOCKS ALONG WITH SMALL BLISTERS TO COCCYX.
--- NOTE | 2016-07-25 11:07 | NUR ---
WOUND CARE CONSULT: NOTED A STAGE 3 PRESSURE INJURY TO RIGHT BUTTOCK MEASURING 1CM X 2CM X YELLOW/SLOUGH WOUND BED. NO DRAINAGE NOTED. THERE IS A SCABBED AREA ON RIGHT UPPER BUTTOCK. ON SACRUM THERE IS A TINY CLUSTER IF BLISTERS (0.5CM X 0.5CM) DR. EDWARDS WILL LOOK AT THESE THIS AFTERNOON. COVERED BUTTOCK WOUNDS WITH MEPILEX BORDERS TO PROTECT AND CUSHION. PT STATES HE WILL CHANGE POSITIONS FREQUENTLY. WOUND CARE MAYNOR CONTINUE TO MONITOR.
[2016-07-25 11:26] VITALS: BP 113/55; BMI 35.1
--- NOTE | 2016-07-25 12:09 | NUR ---
UP IN WHEELCHAIR EATING LUNCH AT THIS TIME. DENIES ANY NEEDS. NO ACUTE DISTRESS NOTED. WILL CONTINUE PLAN OF CARE.
--- NOTE | 2016-07-25 14:34 | NUR ---
RESTING IN BED AT THIS TIME, RESPIRATIONS AT STEADY AND UNLABORED RATE. AWAKENS EASILY WHEN STAFF STATES PT NAME. NO ACUTE DISTRESS NOTED. WILL CONTINUE PLAN FO CARE.
--- NOTE | 2016-07-25 17:32 | NUR ---
UP ON SIDE OF BED EATING SUPPER AND VISITING WITH FAMILY. DENIES ANY NEEDS. WILL CONTINUE PLAN FO CARE.
--- NOTE | 2016-07-25 18:48 | NUR ---
UP IN BED WATCHING TV AND VISITING WITH SIGNIFICANT OTHER AT THIS TIME. DENIES ANY NEEDS. WILL CONTINUE PLAN OF CARE.
--- NOTE | 2016-07-25 19:45 | NUR ---
PT RESTING IN BED, FAMILY AT BEDSIDE. DENIES NEEDS AT THIS TIME. BED LOW. C ISABEL REACH.
--- NOTE | 2016-07-25 21:15 | NUR ---
PT TOOK HS MEDS WITHOUT DIFFICULTY. PT REFUSED TO TAKE WHOLE AMOUNT OF SOLATOL, ADMINISTERED HALF AT PT REQ. PT DENIES FURTHUR NEEDS. WCTM. BED LOW. Netta MATTSON.
--- NOTE | 2016-07-25 23:35 | NUR ---
PT RESTING IN BED, EYES CLOSED. BED LOW. CL IN [facility].
--- NOTE | 2016-07-26 01:47 | NUR ---
PT ASSISTED TO BR. PT HAD LARGE BM. PT BACK IN BED RESTING AND DENIES FURTHUR NEEDS. WCTM. BED LOW. CL IN REACH.
--- NOTE | 2016-07-26 03:15 | NUR ---
PT RESTING, EYES CLOSED. BED LOW. CLIN [facility]. WCTM.
--- NOTE | 2016-07-26 06:37 | NUR ---
PT AM MEDS TAKEN. PT RESTING, EYES CLOSED. BED LOW. CL IN [facility].
--- NOTE | 2016-07-26 07:00 | NUR ---
Pt. was received in bed awake and oriented x 3. Pt. denies any pain or discomfort at this time. Left upper arm PICC line that is patent. 02 per nc going at 3L/min. Telementry on and working properly. Vital signs: Temp. 98.0, pulse 63, resp. 16, b/p 114/51, 02Sat. 98%.Will be monitoring pt. and assisting with adl's prn. Call light is in reach.
[2016-07-26 08:00] VITALS: BP 114/51
[2016-07-26 11:06] VITALS: Ht 190.5 cm; Wt 127.5 kg
--- NOTE | 2016-07-26 12:00 | NUR ---
Pt. is having an uneventful day. Telementry batteries were changed out and the device is working properly. Pt. went to therapy this morning and participated well. No changes in condition to report. Stable condition observed.
--- NOTE | 2016-07-26 17:06 | NUR ---
Pt had therapy this afternoon then rested afterwards in bed. No voiced needs. Call light within reach. Telemetry sr 60's.
--- NOTE | 2016-07-26 20:10 | NUR ---
PT TOOK HS MEDS WITHOUT DIFFICUTLY. PT DENIES NEEDS AT THIS TIME. BED LOW. CLIN REACH.
[2016-07-26 20:45] VITALS: BP 134/60
--- NOTE | 2016-07-26 23:45 | NUR ---
PT RESTING, EYES CLOSED. BED LOW. CL IN [facility].
[2016-07-27 05:41] LABS: BASOPHILS 0 % (0.0-2.0); EOSINOPHILS 1.6 % (0-7); HEMATOCRIT 35.8 % (42.0-54.0); HEMOGLOBIN 11.7 g/dL (13.5-17.5); IMMATURE GRANULOCYTES 1.3 % (0-5); LYMPHOCYTES 9.9 % (15-50); MCH 29.6 pg (26.0-34.0); MCHC 32.7 g/dL (31.0-37.0); MCV 90.6 fL (80.0-100.0); MEAN PLATELET VOLUME 10.7 fL (7.4-10.4); MONOCYTES 5.8 % (2-11); NEUTROPHILS 81.4 % (40-80); PLATELET COUNT 112 10x3/uL (130-400); RBC 3.95 10x6/uL (4.20-6.10); RDW 14.5 % (11.5-14.5); WBC 8.8 10x3/uL (4.8-10.8)
[2016-07-27 05:54] LABS: CALC OSMOLALITY 285 mosm/kg (275-300); CALCIUM 8.1 mg/dL (8.5-10.1); CARBON DIOXIDE 37.2 mmol/L (21.0-32.0); CHLORIDE - SERUM 102 mmol/L (98-107); CREATININE - SERUM 0.9 mg/dL (0.6-1.3); GLUCOSE 110 mg/dL (74-106); SODIUM 141 mmol/L (136-145); UREA NITROGEN 25 mg/dL (7-18); eGFR NON AFRICAN AMERICAN 87 mL/min (90-120)
--- NOTE | 2016-07-27 06:03 | NUR ---
PT SITTING UP WATCHING TV. PT DENIES NEEDS AT THIS TIEM. BED LOW. CLIN [facility].
--- NOTE | 2016-07-27 07:30 | NUR ---
SITTING IN WHEELCHAIR IN THE ROOM. ALERT.
[2016-07-27 07:53] VITALS: BP 131/73
--- NOTE | 2016-07-27 10:44 | RHP ---
PATIENT: AYSHA FELIX MEDICAL RECORD: [id number] ACCOUNT: [id number] LOCATION:[id number] : 37 ADMISSION DATE: 07/25/16 REHABILITATION HISTORY AND PHYSICAL EXAMINATION POST ADMISSION PHYSICIAN EXAMINATION Post-Admission Physical Exam and History and Physical DATE OF ADMISSION TO THE REHAB: 07/25/2016 This is 07/26/2016 at 8:10 in the morning. ADMITTING DIAGNOSES: Acute very severe chronic obstructive pulmonary disease, acute hypercapnic respiratory failure and hypoxemia. HISTORY OF PRESENT ILLNESS: The patient admitted to rehab for COPD and acute very severe COPD, acute hypercapnic respiratory failure, acute hypoxemia with bilateral pleural effusion. He is a 80-year-old gentleman with severe COPD, hypertension, sinusitis, atrial fib, gastroesophageal reflux disease, anxiety and on June 11, he had a bullectomy surgery for recurrent pneumothorax. He has had a history of emphysema and was admitted to the acute hospital on July 09 for shortness of breath 3-4 days prior to admit with respiratory failure requiring ventilatory support on admit to the Emergency Room. He remained on mechanical ventilation from July 09 to July 14. He has got a history of smoking for 31 years about a pack to pack and half a day. He quit in 1989, but has some secondhand smoke exposure. He has got sleep apnea symptoms including snoring and daytime hypersomnolence, fatigue, but has had no witnessed apnea or nocturnal gasping. This patient has no history of childhood asthma, no TB. No history of DVT or PE. He has got a history of problems with his lung functions being quite below normal or about 58% of what is expected at his age. He had a 3-day history prior to the hospital admit of progressing shortness of breath, increased wheezing. Nebulizer helped resolve some of the symptoms, but he is unable to do daily activities. It is worse with nocturnal symptoms. He had a mild cough, no hemoptysis, no real productive sputum, no fever, chills or night sweats. He denied any chest pain. ABGs in the Emergency Room showed a pH of 7.19, a pO2 of 92, pCO2 of 80 and 91% sat. He required urgent intubation. Chest x-ray showed a left infiltrate versus scarring on July 09. He had no nausea, vomiting or diarrhea. His troponin and ____ were both negative. He states that the day prior to acute hospitalization, he was out reyes hogging on his tractor and was independent with ADLs and mobility and did not wear home O2. He is currently min to max assist with ADLs and mobility with using a rolling walker and currently he has been weaning down on oxygen to 5 liters via nasal cannula. The patient wants to return home alone and continue living independently with his ADLs and mobility and the only way we think that this can be done is by going to have inpatient rehab with intensive therapy for the next couple of days. COMORBIDITIES: Include chronic atrial fib, COPD, respiratory failure, bilateral pleural effusions, restrictive lung disease, hypertension, coronary artery disease, severe bulla of the lung, leukocytosis, diarrhea, hypotension, acute kidney injury, gastroesophageal reflux disease, and smoking. PAST MEDICAL HISTORY: Significant for a history of hypertension, CT, stents, atrial fib, edema, angina, coronary artery disease. HISTORY AND PHYSICAL [id number] AYSHA FELIX PAST SURGICAL HISTORY: Includes a tonsillectomy and adenoidectomy. He has had a simple mastectomy and a bulla repair. ALLERGIES: PENICILLIN, TOBRAMYCIN AND SINGULAIR. CURRENT MEDICATIONS: Include sotalol, this can be adjusted to 60 mg b.i.d. He is on prednisone. He is on Protonix 40 mg daily, furosemide 40 mg daily, Lovenox 30 mg subQ daily, Colace 100 mg daily, nystatin powder t.i.d. as needed for rash, Mucinex 1200 mg b.i.d., Pulmicort 0.5 mg b.i.d., Tessalon Perles 100 mg t.i.d., Brovana 15 mcg b.i.d., Ventolin 2.5 q.4 hours p.r.n., Mucomyst 200 mg q.8 hours p.r.n., and MiraLax 17 grams in 8 ounces of water daily. HABITS: No current alcohol or tobacco use, quit smoking in 1989. FAMILY HISTORY: Noncontributory. SOCIAL HISTORY: The patient hopes to return back home and get back to his prior level of functioning. He lives out in [place]. REVIEW OF SYSTEMS: GENERAL: He does complain of weakness and fatigue. HEENT: He denies cold, cough or congestion at this time. CARDIOVASCULAR: Denies any chest pain. LUNGS: Does complain of shortness of breath with any type of activity. PHYSICAL EXAMINATION: VITAL SIGNS: Stable. He is afebrile. GENERAL: A morbidly obese gentleman, in no acute distress, alert upon exam. HEENT: Normocephalic and atraumatic. Mucosa moist. NECK: Supple. No lymphadenopathy. LUNGS: Coarse breath sounds bilaterally. CARDIOVASCULAR: Irregular rate and rhythm. ABDOMEN: Benign. EXTREMITIES: No clubbing, cyanosis, or edema. NEUROLOGIC: Intact. PELVIS: It should be noted that on his coccyx area, he does have some blisters. I am going to take a close look at these over the next couple of days, may need to treat him for shingles. ASSESSMENT: This is a 80-year-old gentleman admitted to the rehab with a working diagnosis of pretty severe chronic obstructive pulmonary disease and myopathy. The patient has potential to make improvement. We instituted the following multidisciplinary therapies including to, but not limited to physical, occupational, respiratory, speech, nutritional services, prosthetics and orthotics. Given his complex condition and risk for more complications, rehabilitation services cannot be provided at a low level of care such as a prison facility. PLAN: 1. Admit to [facility] rehab for intensive inpatient therapy to include the following disciplines: A. Physical therapy to improve gait, all transfer skills and bed mobility to a modified independent level. B. Occupational therapy to improve activities of daily living to a modified HISTORY AND PHYSICAL [id number] AYSHA FELIX independent level. C. Case management to assist with discharge planning and placement options. D. Nutrition to assist with nutritional needs. E. Rehabilitation nursing to assist in monitoring the patient's underlying medical conditions and to assist with any type of bowel or bladder management. 2. We will closely monitor his atrial fibrillation and make sure he does not go back into rapid ventricular response. 3. We will go ahead and watch his respiratory failure and watch his oxygen levels during his stay. 4. We will go ahead and discuss this patient during care team staff meeting this week. TRANSINT:[id number] Voice Confirmation ID: [id number] DOCUMENT ID: [id number] GRETCHEN EDWARDS MD at 1044 CC: [id number] DICTATION DATE: 02/16/17 0816 DIELECTRIC PRESS OPERATOR: 07/26/16 1122 ADM IN [facility] [address] [id number]
--- NOTE | 2016-07-27 11:15 | NUR ---
SITTING IN WHEELCHAIR WATCHING TV.
--- NOTE | 2016-07-27 13:27 | NUR ---
EXERCISING IN GYM WHILE STANDING.
--- NOTE | 2016-07-27 15:26 | NUR ---
SITTING IN WHEELCHAIR RECEIVING REATHING TX WITH VISITOR IN THE ROOM.
--- NOTE | 2016-07-27 17:16 | NUR ---
SITTING IN WHEELCHAIR IN THE ROOM.
--- NOTE | 2016-07-27 19:20 | NUR ---
PT RESTING IN BED WATCHING TV, RESPIRATIONS REG AND UNLABORED, OXYGEN AT 2L N/C.
[2016-07-27 19:38] VITALS: BP 130/70
--- NOTE | 2016-07-28 00:24 | NUR ---
PT UP TO BATHROOM, SBA WITH TRANSFER, PT STABLE, GOOD BALANCE. PICC LINE FLUSHED, WHITE PORT BLOOD RETURN, OTHER TWO PORTS NO BLOOD RETURN, ABLE TO FLUSH.
--- NOTE | 2016-07-28 06:58 | NUR ---
Pt woke at 4:30 and requested coffee. then drank, took a nap and at 6 assisted to bathroom, and requested another cup of coffee. denies any needs.
--- NOTE | 2016-07-28 07:30 | NUR ---
RESTING QUIETLY IN BED. CALL LIGHT IN REACH
[2016-07-28 08:00] VITALS: BP 118/62
--- NOTE | 2016-07-28 10:35 | NUR ---
PATIENT IN REHAB ROOM. WORKING WITH PHYSICAL THERAPIST. DENIES ANY PAIN/DISC AT THIS TIME
--- NOTE | 2016-07-28 13:43 | NUR ---
TELEMETRY ON. NEW BATTERIES IN. PATIENT IS RUNNING 70SR WITH PAC.
--- NOTE | 2016-07-28 17:54 | NUR ---
VISITING IN PATIENTS ROOM. BROUGHT FOOD FROM HOME FOR PATIENTS SUPPER. PATIENT ATE 100%.
[2016-07-28 19:39] VITALS: BP 119/68
--- NOTE | 2016-07-28 19:55 | NUR ---
PT STATES HE HASN'T BEEN ON HIS OXYGEN ALL DAY AND FEELS GOOD. PT DENIES ANY NEEDS, SPOUSE JUST LEFT, NEW VISITORS IN ROOM.
--- NOTE | 2016-07-29 00:25 | NUR ---
RESTING QUIETLY IN BED, RESPIRATIONS REGULAR AND UNLABORED. PT SAT UP IN W/C TONIGHT, PT HAD VISITORS, PT TALKATIVE. PT ATE TWO ICE CREAMS.
--- NOTE | 2016-07-29 07:05 | NUR ---
RESTING QUIETLY IN BED. CALL LIGHT IN REACH
[2016-07-29 08:00] VITALS: BP 128/68
--- NOTE | 2016-07-29 08:50 | NUR ---
PATIENT SITTING UP ON THE SIDE OF THE BED TO EAT BREAKFAST. ALERT/ORIENT X4. VOICES NO NEEDS. CALL LIGHT WITHIN REACH
[2016-07-29 10:06] VITALS: BP 128/66
--- NOTE | 2016-07-29 10:13 | NUR ---
PATIENT TRANSFERING FROM BED INTO WHEELCHAIR. SELF PROPELLS WHEELCHAIR INTO BATHROOM AND ONTO TOILET WITHOUT ANY DIFFICULTY
--- NOTE | 2016-07-29 13:16 | NUR ---
PATIENT HAS VISITORS IN ROOM. VOICES NO NEEDS AT THIS TIME
--- NOTE | 2016-07-29 18:45 | NUR ---
PATIENT CALLED THIS NURSE IN ROOM. REQUESTED THAT THIS NURSE LOOK AT PATIENTS LOWER BACK. PATIENT HAS RED RASH RASH COVERED WITH MEPILEX DRESSING. WILL CONTINUE TO MONITOR.
[2016-07-29 20:31] VITALS: BP 106/72
--- NOTE | 2016-07-29 20:35 | NUR ---
PT TOOK HS MEDS WITHOUT DIFFICULTY. PT DENIES NEEDS AT THIS TIME. BED LOW. CL IN REACH.
--- NOTE | 2016-07-29 22:15 | NUR ---
PT RESTING, EYES CLOSED. BED LOW. CL IN [facility].
--- NOTE | 2016-07-30 00:30 | NUR ---
PT RESTING, EYES CLOSED. BED LOW. CL IN [facility].
--- NOTE | 2016-07-30 02:45 | NUR ---
PT RESTING, EYES CLOSED. BED LOW. CL IN [facility].
--- NOTE | 2016-07-30 04:51 | NUR ---
PT AWOKE AND WAS VERY ANXIOUS. PT HAD REMOVED HER O2. O2 SAT WAS 88. REPLACED O2 AND SAT CAME BACK UP TO 94 AND PT SEEMED TO RELAX. WCTM. BED LOW. CL IN REACH.
[2016-07-30 05:59] LABS: BASOPHILS 0 % (0.0-2.0); HEMATOCRIT 37.1 % (42.0-54.0); HEMOGLOBIN 11.9 g/dL (13.5-17.5); MCH 29.5 pg (26.0-34.0); MCHC 32.1 g/dL (31.0-37.0); MCV 92.1 fL (80.0-100.0); MEAN PLATELET VOLUME 10.5 fL (7.4-10.4); MONOCYTES 7.3 % (2-11); NEUTROPHILS 75.7 % (40-80); PLATELET COUNT 100 10x3/uL (130-400); RBC 4.03 10x6/uL (4.20-6.10); RDW 14.8 % (11.5-14.5); WBC 6.7 10x3/uL (4.8-10.8)
[2016-07-30 06:24] LABS: CALC OSMOLALITY 289 mosm/kg (275-300); CARBON DIOXIDE 34.1 mmol/L (21.0-32.0); CHLORIDE - SERUM 104 mmol/L (98-107); CREATININE - SERUM 0.9 mg/dL (0.6-1.3); GLUCOSE 88 mg/dL (74-106); POTASSIUM - SERUM 3.3 mmol/L (3.5-5.1); SODIUM 145 mmol/L (136-145); UREA NITROGEN 19 mg/dL (7-18); eGFR NON AFRICAN AMERICAN 87 mL/min (90-120)
--- NOTE | 2016-07-30 07:30 | NUR ---
RESTING QUIETLY IN BED
--- NOTE | 2016-07-30 08:10 | NUR ---
DR. Arlene EDWARDS INTO SEE PATIENT. NEW ORDERS RECEIVED.
[2016-07-30] MEDS ORDERED: ZOVIRAX200 MG PO (08:58)
[2016-07-30] MEDS ORDERED: BUMEX 1 MG TAB1 MG PO (08:59)
[2016-07-30] MEDS ORDERED: BETAPACE 120 M120 MG PO (08:59)
[2016-07-30] MEDS ORDERED: K-DUR20 MEQ PO (08:59)
--- NOTE | 2016-07-30 10:21 | NUR ---
PATIENT WORKING WITH PHYSICAL THERAPIST. WALKING UP AND DOWN HALLWAY WITH WHEELED WALKER.
[2016-07-30 10:37] VITALS: BP 120/67
--- NOTE | 2016-07-30 12:31 | NUR ---
PICC line discontinuation-left upper arm PICC removed per protocol with cath intact at 49. Pressure to site for 5 minutes and tegaderm dressing placed. Christelle Capone RN
--- NOTE | 2016-07-30 17:32 | NUR ---
PATIENT HAS VISITORS IN ROOM. VOICES NO NEEDS
[2016-07-30 19:59] VITALS: BP 119/71
--- NOTE | 2016-07-30 20:30 | NUR ---
PT HS MEDS GIVEN. PT DENIES FURTHUR NEEDS. WCTM. BED LOW. CLIN REACH.
--- NOTE | 2016-07-30 22:50 | NUR ---
PT RESTING, EYES CLOSED. BED LOW. CLIN [facility].
--- NOTE | 2016-07-31 01:55 | NUR ---
PT RESTING, EYES CLOSED. BED LOW. CL IN [facility]. WCTM.
--- NOTE | 2016-07-31 05:43 | NUR ---
PT TOOK AM MEDS WITHOUT DIFFICULYT. PT DENIES FURTHUR NEEDS AT THIS TIME. BED LOW. CL IN [facility].
--- NOTE | 2016-07-31 08:00 | NUR ---
SITTING UP IN BED.PLAN TO DC HOME TODAY.BLISTERS AND SORES HEALING TO AREA OF LOW BACK ABOVE COCCYX AND OFF TO THE RIGHT JUST OVER THE HIP ABOVE BUTTOCK;THIS AREA IS SCABBED.STATES HE TAKES [place] AT HOME FOR THIS.
[2016-07-31 08:02] VITALS: BP 123/73
--- NOTE | 2016-07-31 10:30 | NUR ---
RW DELIVERED TO PT BY [facility].REVIEWED MEDS HOME CARE AND APPTS WITH PT WITH STATED UNDERSTANDING.
--- NOTE | 2016-07-31 10:39 | NUR ---
PATIENT DISCHRGING HOME TODAY WITH [facility]. [facility] WILL DELIVER A ROLLING WALKER . APPOINTMENTS: CECI DUARTE 08/06/16 @ 10:30, DR. TAN 09/26/16 @ 9:45, DR. PRO 08/01/16 @ 2:30. PATIENT CHOICE FOR HOME HEALTH AND [facility] FORM EXPLAINED, SIGNED AND FILED IN CHART. ORDERS HAVE BEEN FAXED WITH CONFORMATION RECIEVED. PATIENT EDUCATED ON ANEXIETY AND RELAXATION TECHNIQUES.
--- NOTE | 2016-07-31 11:20 | NUR ---
DISCHARGED IN STABLE CONDITION WITH RW.
--- NOTE | 2016-09-11 13:04 | DS ---
PATIENT:AYSHA FELIX :39 MEDICAL RECORD: [id number] DISCHARGE SUMMARY ADMISSION DATE: 07/25/16 DISCHARGE DATE: 07/31/16 This is a discharge from inpatient rehab dated 07/31/2016. PRIMARY DIAGNOSES: Decreased functional ability and ability to provide activities of daily living secondary to severe chronic obstructive pulmonary disease. SECONDARY DIAGNOSES: 1. Chronic obstructive pulmonary disease exacerbation. 2. Acute hypercapnic, hypoxemic respiratory failure. 3. Bilateral pleural effusions. 4. Hypertension. 5. Chronic atrial fibrillation. 6. Gastroesophageal reflux disease. 7. Anxiety. 8. Coronary artery disease. 9. Pneumonia. 10. Hypokalemia. 11. Pancytopenia. 12. Stage III buttock decubitus. HOSPITAL COURSE: Full H&P is located elsewhere on the chart on this 80-year-old male, who was admitted to inpatient rehab for physical therapy and occupational therapy to improve gait, transfer skills, bed mobility, and activities of daily living to a modified independent level. He was evaluated by PT and OT and their plans of care were followed. He required fci care for observation, assessment and medication administration. He required wound care to coccyx blisters and buttock decubitus. He had nebulized medications for respiratory support. Electrolytes were managed by protocol. He was cooperative with therapies, progressing towards goals. Case management was involved for discharge planning. He had supplemental oxygen to keep sats greater than 90%. He was considered stable for discharge on 07/31/2016. DISCHARGE MEDICATIONS: As per discharge medication reconciliation. DISCHARGE DISPOSITION: The patient is discharged home. He will continue his current diet and level of activity and he will follow up with primary care in 7-10 days. He will have home health for fci and continued physical therapy and occupational therapy. His PICC line was removed prior to his discharge. At least 30 minutes was spent in this discharge activity. TRANSINT:[id number] Voice Confirmation ID: [id number] DOCUMENT ID: [id number] Dictated By: EBONI PRESTON I have interviewed/examined the above patient and agree with these documented findings. DISCHARGE SUMMARY REPORT [id number] ISIDROARMENAYSHAGRETCHEN COX MD at 1304 at 0939 CC: [id number] DICTATION DATE: 09/07/16 1555 HELICOPTER DISPATCHER: 09/07/16 2254 DIS IN 07/31/16 [place] [id number] [place] [id number]
== END 2016-07-31 11:20 | disposition home health service (06) | DRG 91 ==
LOC: D.REHAB 10:07
PROVIDERS: ADMIT Emergency Medicine
DX: G72.89 Other specified myopathies (principal); J96.02 Acute respiratory failure with hypercapnia; J96.01 Acute respiratory failure with hypoxia; J18.9 Pneumonia, unspecified organism; J90 Pleural effusion, not elsewhere classified; N17.9 Acute kidney failure, unspecified; J44.1 Chronic obstructive pulmonary disease with (acute) exacerbation; E87.0 Hyperosmolality and hypernatremia; D61.818 Other pancytopenia; I48.2 Chronic atrial fibrillation; I10 Essential (primary) hypertension; I25.10 Atherosclerotic heart disease of native coronary artery without angina pectoris; D72.829 Elevated white blood cell count, unspecified; R19.7 Diarrhea, unspecified; I95.9 Hypotension, unspecified; K21.9 Gastro-esophageal reflux disease without esophagitis; F17.200 Nicotine dependence, unspecified, uncomplicated

== ENCOUNTER 2016-08-28 10:52 | Inpatient (IN) | payer MEDICARE ==
[~2016-08-28] VITALS: Ht 190.5 cm; Wt 127.0 kg
[~2016-08-28 10:52] MED LIST changes: +BUMEX 1 MG TAB1 MG PO; +K-DUR20 MEQ PO; +ZOVIRAX200 MG PO
[2016-08-28 11:22] LABS: BASOPHILS 0.3 % (0.0-2.0); EOSINOPHILS 4.7 % (0-7); HEMATOCRIT 40.8 % (42.0-54.0); HEMOGLOBIN 13.2 g/dL (13.5-17.5); IMMATURE GRANULOCYTES 0.8 % (0-5); LYMPHOCYTES 34.8 % (15-50); MCH 30.1 pg (26.0-34.0); MCHC 32.4 g/dL (31.0-37.0); MCV 93.2 fL (80.0-100.0); MEAN PLATELET VOLUME 9.6 fL (7.4-10.4); MONOCYTES 5.4 % (2-11); RBC 4.38 10x6/uL (4.20-6.10); RDW 15.5 % (11.5-14.5); WBC 11.7 10x3/uL (4.8-10.8)
[2016-08-28 11:24] LABS: PLATELET COUNT 191 10x3/uL (130-400)
[2016-08-28 11:53] LABS: CREATINE KINASE 42 UL (21-232); PRO BNP 837 pg/mL (0-450)
[2016-08-28 11:55] LABS: APTT 31.9 SECONDS (22.8-39.4); INR 1.04 (0.85-1.17); PROTIME 13.5 SECONDS (11.6-15.0); TROPONIN-I < 0.017 ng/mL (0.000-0.060)
[2016-08-28 13:05] LABS: ALBUMIN 3.3 g/dL (3.4-5.0); ALKALINE PHOSPHATASE 87 U/L (46-116); ALT (SGPT) 23 U/L (10-68); CALC OSMOLALITY 284 mosm/kg (275-300); CALCIUM 8.5 mg/dL (8.5-10.1); CARBON DIOXIDE 34.3 mmol/L (21.0-32.0); CHLORIDE - SERUM 101 mmol/L (98-107); GLUCOSE 122 mg/dL (74-106); POTASSIUM - SERUM 4.2 mmol/L (3.5-5.1); PROTEIN - SERUM 7.2 g/dL (6.4-8.2); SODIUM 143 mmol/L (136-145); UREA NITROGEN 11 mg/dL (7-18); eGFR NON AFRICAN AMERICAN 77 mL/min (90-120)
[2016-08-28 14:40] LABS: APPEARANCE HAZY (CLEAR); BACTERIA MODERATE /hpf (NONE SEEN); BILIRUBIN NEGATIVE (NEGATIVE); COLOR YELLOW (YELLOW); EPITHELIAL CELLS 0-5 /hpf (0-5); GLUCOSE NEGATIVE (NEGATIVE); GRANULAR CAST 0-5 /lpf (NONE SEEN); HYALINE CAST RARE /lpf (NONE SEEN); KETONE NEGATIVE (NEGATIVE); LEUKOCYTE ESTERASE TRACE (NEGATIVE); MUCUS >1+ /lpf (NONE SEEN); NITRITE NEGATIVE (NEGATIVE); PROTEIN 1+ mg/dL (NEGATIVE); RED CELLS - URINE OCC /hpf (0-5); SPECIFIC GRAVITY 1.015 (1.005-1.020); UROBILINOGEN NORMAL (NORMAL); WHITE CELLS - URINE 0-5 /hpf (0-5)
[2016-08-28 20:00] VITALS: BP 108/54
--- NOTE | 2016-08-28 20:52 | NUR ---
RECIEVED TO ROOM VIA STRETCHER FROM ER BIPAP PLACED PER RT AT BEDSIDE. NO ACUTE DISTRESS NOTED AWAKE AND ALERT SPOUSE AT BEDSIDE
[2016-08-29] VITALS (7 sets, daily range): BP systolic 100–132; BP diastolic 43–67; Ht 190.5 cm; Wt 127.0 kg
--- NOTE | 2016-08-29 01:52 | NUR ---
PT RESTING IN BED WITH BIPAP PER RT SETTINGS ON 40% O2 AWAKE AND ALERT LUNGS WITH COARSE SOUNDS NOTED BILATERALY. UP TO BR AD CONCHITA. NO ACUTE DISTRESS NOTED.
[2016-08-29 06:14] LABS: BASOPHILS 0.1 % (0.0-2.0); EOSINOPHILS 0.1 % (0-7); HEMATOCRIT 38.4 % (42.0-54.0); HEMOGLOBIN 12.5 g/dL (13.5-17.5); IMMATURE GRANULOCYTES 0.6 % (0-5); LYMPHOCYTES 19.1 % (15-50); MCH 30.3 pg (26.0-34.0); MCHC 32.6 g/dL (31.0-37.0); MCV 93.2 fL (80.0-100.0); MEAN PLATELET VOLUME 10.2 fL (7.4-10.4); MONOCYTES 1.5 % (2-11); NEUTROPHILS 78.6 % (40-80); PLATELET COUNT 200 10x3/uL (130-400); RBC 4.12 10x6/uL (4.20-6.10); RDW 15.1 % (11.5-14.5); WBC 10.8 10x3/uL (4.8-10.8)
[2016-08-29 06:40] LABS: ANION GAP 10.7 mmol/L (8-16); BILIRUBIN - TOTAL 0.5 mg/dL (0.2-1.3); CALCIUM 8.5 mg/dL (8.5-10.1); CARBON DIOXIDE 33.7 mmol/L (21.0-32.0); CREATININE - SERUM 1.2 mg/dL (0.6-1.3); POTASSIUM - SERUM 4.4 mmol/L (3.5-5.1); PROTEIN - SERUM 6.8 g/dL (6.4-8.2)
[2016-08-29 10:34] LABS: INR 1.04 (0.85-1.17); PROTIME 13.4 SECONDS (11.6-15.0)
--- NOTE | 2016-08-29 12:15 | NUR ---
ER CM: A/O X3, No steps into the home. PCP dr Huerta. Pharmacy: [facility]. Lives in a house with his spouse, Gertrude Vaughn. Independent. Emergency contact: Gertrude Vaughn: Gertrude Vaughn #[phone] (c). DME: [facility]. Walker, portable and home O2, Nebulizer, C-pap. [facility]. Uses no community resources. Spouse request [facility] upon discharge. Plans to return home upon discharge. Yanna Brooks RN CM
[2016-08-29] MEDS ORDERED: BAYER CHEWABLE81 MG PO (13:01)
--- NOTE | 2016-08-29 20:25 | NUR ---
WATCHING TV. NO COMPLAINTS VOICED. O2 @ 6L PER NC ON. NO DISTRESS NOTED. IV INFUSING TO LEFT FOREARM WIHTUT REDNESS OR EDEMA. CL IN REACH.
--- NOTE | 2016-08-29 23:42 | NUR ---
PT IS AWAKE AND WATCHING TV. REQUESTED AND RECEIVED ICECREAM AND SPRITE. HE HAS A BIP PAP MACHINE AT THE BEDSIDE BUT IS NOT WEARING IT YET. THE BED IS LOW, RAILS UP X'S 2 WITH THE CALL LIGHT AT HAND.
[2016-08-30 04:00] VITALS: BP 129/69
--- NOTE | 2016-08-30 04:54 | NUR ---
RESTING QUIETLY. CL IN REACH.
[2016-08-30 05:37] LABS: BASOPHILS 0.1 % (0.0-2.0); EOSINOPHILS 0 % (0-7); HEMATOCRIT 35.4 % (42.0-54.0); HEMOGLOBIN 11.4 g/dL (13.5-17.5); IMMATURE GRANULOCYTES 0.4 % (0-5); LYMPHOCYTES 11.5 % (15-50); MCH 30.1 pg (26.0-34.0); MCHC 32.2 g/dL (31.0-37.0); MCV 93.4 fL (80.0-100.0); MEAN PLATELET VOLUME 10.1 fL (7.4-10.4); MONOCYTES 3.5 % (2-11); NEUTROPHILS 84.5 % (40-80); PLATELET COUNT 185 10x3/uL (130-400); RBC 3.79 10x6/uL (4.20-6.10); RDW 15.3 % (11.5-14.5)
[2016-08-30 05:48] LABS: WBC 15.3 10x3/uL (4.8-10.8)
[2016-08-30 06:01] LABS: ALBUMIN 2.8 g/dL (3.4-5.0); ANION GAP 9.6 mmol/L (8-16); BILIRUBIN - TOTAL 0.33 mg/dL (0.2-1.3); CALCIUM 8.4 mg/dL (8.5-10.1); CARBON DIOXIDE 32.6 mmol/L (21.0-32.0); CREATININE - SERUM 1.1 mg/dL (0.6-1.3); POTASSIUM - SERUM 4.2 mmol/L (3.5-5.1); PROTEIN - SERUM 6.2 g/dL (6.4-8.2)
--- NOTE | 2016-08-30 07:40 | NUR ---
PT AOX4 RESP EVEN AND NONLABORED PT DENIES PAIN AT THIS TIME IV TO RIGHT AC PATENT AND INTACT BED AT LOWEST SETTING CALL LIGHT WITHIN REACH WILL CONTINUE TO MONITOR
[2016-08-30 07:56] VITALS: BP 133/64
[2016-08-30 12:14] VITALS: BP 138/63
[2016-08-30 15:42] VITALS: BP 142/81
--- NOTE | 2016-08-30 19:30 | NUR ---
PT RECEIVED SITTING UP IN BED WATCHING TELEVISION. PT ALERT AND ORIENTED X4. SEE SHIFT ASSESSMENT. DENIES PAIN AT THIS TIME. O2 SAT IN LOWER 90'S. PT STATES, "THAT IS NORMAL FOR ME." CONTINUES WTIH CONTINUES PULSE OX. IV TO RIGHT AC WITH NS @ 75 NOTED TO BE PATENT, DRESSING CLEAN, DRY, AND INTACT. IV SITE FREE FROM REDNESS AND EDEMA. PT DENIES PAIN AT THIS TIME. CALL LIGHT AND H2O IN PT REACH. SIDE RAILS UP X2. BED IN LOW POSITION.
[2016-08-30 20:00] VITALS: BP 113/57
--- NOTE | 2016-08-30 21:30 | NUR ---
PT SITTING UP IN BED WATCHING TELEVISION. RESPIRATIONS EVEN AND UNLABORED. PT DENIES PAIN OR NEEDS AT THIS TIME. CALL LIGHT AND H2O IN PT REACH. BED IN LOW POSITION. SIDE RAILS UP X2.
--- NOTE | 2016-08-30 23:30 | NUR ---
PT RESTING IN BED WITH EYES CLOSED. NO S/S OF DISTRESS NOTED. RESP EVEN AND UNLABORED. CALL LIGHT AND H2O IN PT REACH. BED IN LOW POSITION. SIDE RAILS UP X2.
[2016-08-31] VITALS: BP 138/63
[2016-08-31 04:00] VITALS: BP 134/71
--- NOTE | 2016-08-31 04:00 | NUR ---
PATIENT SLEEPING WITH NO DISTRESS NOTED. AGREE WITH [employer] ADMINISTRATOR ASSESSMENT.
[2016-08-31 07:21] LABS: BASOPHILS 0 % (0.0-2.0); EOSINOPHILS 0 % (0-7); HEMATOCRIT 36.3 % (42.0-54.0); HEMOGLOBIN 11.6 g/dL (13.5-17.5); IMMATURE GRANULOCYTES 0.6 % (0-5); LYMPHOCYTES 13.9 % (15-50); MCH 29.7 pg (26.0-34.0); MCV 92.8 fL (80.0-100.0); NEUTROPHILS 81.5 % (40-80); PLATELET COUNT 167 10x3/uL (130-400); RBC 3.91 10x6/uL (4.20-6.10); RDW 15.5 % (11.5-14.5)
[2016-08-31 07:24] LABS: ALBUMIN 2.9 g/dL (3.4-5.0); ALKALINE PHOSPHATASE 62 U/L (46-116); BILIRUBIN - TOTAL 0.31 mg/dL (0.2-1.3); CALC OSMOLALITY 292 mosm/kg (275-300); CALCIUM 8.1 mg/dL (8.5-10.1); CARBON DIOXIDE 33.7 mmol/L (21.0-32.0); CHLORIDE - SERUM 105 mmol/L (98-107); GLUCOSE 147 mg/dL (74-106); POTASSIUM - SERUM 3.9 mmol/L (3.5-5.1); PROTEIN - SERUM 6.2 g/dL (6.4-8.2); SODIUM 143 mmol/L (136-145); UREA NITROGEN 26 mg/dL (7-18); eGFR NON AFRICAN AMERICAN 77 mL/min (90-120)
[2016-08-31 07:30] LABS: ALT (SGPT) 19 U/L (10-68)
--- NOTE | 2016-08-31 07:30 | NUR ---
RECIEVED PT DURING WALKING ROUNDS. PT RESTING COMFORTABLY IN BED WITH NO COMPLAINTS OF PAIN OR DISCOMFORT AT THIS TIME. ASSESSMENT DONE PER FLOWSHEET. BED IN LOW POSITION AND CALL LIGHT WITHIN REACH. WILL CONTINUE TO MONITOR.
[2016-08-31 07:40] VITALS: BP 145/69
--- NOTE | 2016-08-31 09:36 | NUR ---
AWAKE AND ALERT. ORIENTED X3. NO C/O AT THIS TIME. LUNGS ARE CLEAR BILATERALLY, REPORTS OCCASSIONAL PRODUCTIVE COUGH. DENIES NEEDS AT THIS TIME. SITTING UP ON SIDE OF BED.
--- NOTE | 2016-08-31 10:30 | NUR ---
PT AWAITING TO SEE DR ABOUT DISCHARGE. INFORMED HIM WE WOULD SPEAK TO THE DR WHEN HE ARRIVES. PT RESTING WITH NO COMPLAINTS. BED IN LOW POSITION AND CALL LIGHT WITHIN REACH. WILL CONTINUE TO MONITOR.
[2016-08-31 12:12] VITALS: BP 122/88
[2016-08-31] MEDS ORDERED: IPRAT-ALBUT 0.5-3 ML INH (12:32)
[2016-08-31] MEDS ORDERED: BROVANA15 MCG/2 M INH (12:32)
[2016-08-31] MEDS ORDERED: FLORAJEN3 CAPS460 MG PO (12:33)
[2016-08-31] MEDS ORDERED: STERAPRED DS 1010 MG PO (12:33)
[2016-08-31] MEDS ORDERED: PULMICORT0.5 MG/21 UPD (12:33)
[2016-08-31] MEDS ORDERED: LEVAQUIN500 MG PO (12:34)
--- NOTE | 2016-08-31 12:40 | NUR ---
Patient Name: AYSHA FELIX Admission Status: ER Accout number: [id number] Admission Date: 08-28-2016 : 1937 Admission Diagnosis:ACUTE RESPIRATORY FAILURE WITH HYPERCAPNIA Attending: ELIAZAR Current LOS: 3 Anticipated DC Date: 09-03-2016 Planned Disposition: Home Primary Insurance: MEDICARE A & B Discharge Planning Comments: CM MET WITH PATIENT REGARDING D/C NEEDS AND PLANS. PATIENT STATED HE HAS A "LIVE IN" (ABELARDO CHANG) AND SHE WILL DRIVE HIM HOME AT DISCHARGE. PATIENT STATES THERE ARE NO STEPS OR STAIRS AT HIS HOME. PATIENTS PCP IS DR. ORNELAS AND HE USES [facility] [address] FOR HIS PHARMACY. PATIENT IS ON 2-3 LITERS OF OXYGEN 24/7, AND HAS A NEBULIZER AND PORTABLE O2 AT HOME. PATIENT HAD [facility] FROM LAST HOSPITAL VISIT BUT DOES NOT HAVE SERVICE AT THIS TIME. MKT STATED IF DOCTOR THOUGHT HE NEEDED HOME HEALTH AFTER THIS HOSPITAL VISIT HE WOULD CONSIDER IT OTHERWISE HE DOES NOT WANT IT. CM WILL CONTINUE TO FOLLOW PATIENT WITH D/C NEEDS AND PLANS. PCP DR[facility] [address]- [phone] ABELARDO CHANG (GIRLFRIEND) [phone] Agricultural Appraiser: Lashay Jackman Is the patient Alert and Oriented? Yes 0 * How many steps to enter\\exit or inside your home? 0 0 * PCP DR. ORNELAS 0 * Pharmacy [facility] 0 * Preadmission Environment Other 0 * Other Environment PATIENT STATED HE HAS A "LIVE IN" GIRLFRIEND 0 * ADLs Independent 0 * Equipment Nebulizer Oxygen 0 * List name and contact numbers for known caregivers / representatives who currently or will assist patient after discharge: ABELARDO CHANG (LIVE IN) [phone] 0 * Community resources currently utilized None 0 * Additional services required to return to the preadmission environment? Yes 0 * Can the patient safely return to the preadmission environment? Yes 0 * Has this patient been hospitalized within the prior 30 days at any hospital? No 0 Grand Total: 0
--- NOTE | 2016-08-31 12:51 | NUR ---
CM REASSESSMENT NOTE: PATIENT IS DISCHARGING HOME TODAY-FAMILY DRIVING. PATIENT STATED [facility]ENDER [facility]ARE WILL BE SEEING HIM AFTER D/C. PATIENT DENIED ANY OTHER NEEDS FOR DISCHARGE. PATIENT WAS SERVED THE IMM NOTICE AND IT WAS SIGNED.
--- NOTE | 2016-08-31 13:09 | NUR ---
CM REASSESSMENT NOTE: PATIENT IS DISCHARGING TODAY-GIRLFRIEND DRIVING HIM HOME. PATIENTS GF IS BRINGING HIS PORTABLE O2 FOR DISCHARGE. PATIENT DENIED HOME HEALTH OR ANY OTHER NEEDS FOR DISCHARGE.
--- NOTE | 2016-08-31 13:49 | CN ---
PATIENT NAME:AYSHA FELIX MEDICAL RECORD: [id number] : 39 LOCATION:[id number] ADMIT DATE: 08/28/16 ACCOUNT: [id number] CONSULTING PHYSICIAN: DIAN NUR MD REFERRING PHYSICIAN: NIMA PEREA MD DATE OF CONSULTATION: 08/28/2016 CONSULT REQUESTING PHYSICIAN: Nima Perea MD REASON FOR CONSULTATION: Acute exacerbation of chronic obstructive pulmonary disease, obeif-wz-xddjuil hypoxic hypercapnic respiratory failure. HISTORY OF PRESENT ILLNESS: Mr. Felix is a 80-year-old gentleman, very well known to us with a history of COPD, home oxygen dependent. The patient was recently hospitalized and gone home. According to the patient, since yesterday, he has worsening shortness of breath. He was coughing. He has also associated orthopnea. There are no fever and chill. On arrival to the ER, his pulse ox was 84% on room air in the ER. He denies any chest pain. He is also having coughing. I was called to the ER to evaluate the patient. REVIEW OF SYSTEMS: Mainly in the history of present illness. PAST MEDICAL HISTORY: 1. COPD, home oxygen dependent. 2. Chronic hypoxic respiratory failure. 3. History of spontaneous pneumothorax and status post left pleurodesis and bullectomy. 4. Hypertension. 5. Coronary artery disease. 6. History of angina. 7. History of atrial fibrillation. 8. History of dependent edema. 9. History of recent respiratory failure, mechanical ventilation, atelectasis, left lower lobe and bronchoscopy. PAST SURGICAL HISTORY: 1. He is status post pleurodesis and bullectomy. 2. History of T&A. 3. Cardiac catheterization and stent placement. 4. Mastectomy on the right. ALLERGIES: HE IS ALLERGIC TO PENICILLIN, MONTELUKAST, AND TOBRAMYCIN. PRESENT MEDICATIONS: On [employer] was reviewed. PERSONAL AND SOCIAL HISTORY: The patient is and lives with his . He is an ex-smoker. He is a nondrinker. FAMILY HISTORY: Noncontributory. PHYSICAL EXAMINATION: GENERAL: Now, the patient is lying comfortably. He is wearing the BiPAP machine. VITAL SIGNS: His pulse ox is 95% on the BiPAP. At home, his pulse ox is 84% on room air. CONSULT REPORT [id number] AYSHA FELIX HEENT: Conjunctivae are pink. Sclerae nonicteric. NECK: Neck is supple. No JVD. CHEST: There are bilateral crackles and wheezing. There is prolonged expiration. HEART: Rhythm regular, normal sound. No murmur. ABDOMEN: Abdomen is soft. Bowel sounds present. No hepatosplenomegaly. RECTAL: Deferred. EXTREMITIES: No cyanosis. No clubbing. No pedal edema. There is 1+ pedal edema. SKIN: The skin is warm. Normal turgor. CENTRAL NERVOUS SYSTEM: The patient is awake and alert. There is no obvious cranial nerve abnormality. The gait was not tested. LABORATORY DATA: CBC: WBC 11.7, hemoglobin 13.2, hematocrit 40.8, and the platelet count 191. Chemistry: Sodium is 143, potassium 4.2, chloride 101, bicarb is 34.3, BUN is 11, creatinine is 1, and glucose 122. ABG: The pH is 7.32, pCO2 is 64.2, the pO2 is 86, and bicarbonate is 33. This was done on 6 liters nasal cannula. DIAGNOSTIC DATA: Chest radiograph, there is bilateral increased interstitial markings. There is borderline cardiomegaly. There is basilar atelectasis and mostly improved compared to the chest radiograph on 07/24/2016. IMPRESSION: 1. Acute exacerbation of chronic obstructive pulmonary disease. 2. Hppik-nm-rcyeien hypoxic hypercapnic respiratory failure. 3. Respiratory acidosis secondary. 4. Leukocytosis. 5. Associated tracheobronchitis. 6. Possible associated congestive heart failure with elevated BNP. RECOMMENDATION: 1. Start methylprednisolone IV, albuterol, ipratropium nebulizer and start on Brovana and budesonide nebulizer. 2. Cefepime and Levaquin IV. 3. Supplemental oxygen and BiPAP as required to keep SpO2 above 90%. 4. Lasix 40 mg daily. 5. Follow up labs and chest radiograph in the morning. Dr. Perea, once again thank you for involving me in the care of Mr. Felix. The critical care time is 45 minutes. TRANSINT:[id number] Voice Confirmation ID: [id number] DOCUMENT ID: [id number] DIAN NUR MD at 1344 CC: YANDEL ORNELAS DO [id number] DICTATION DATE: 08/28/16 182 HARNESS FITTER: 08/28/16 2333 ADM IN [place] [id number] [place] [id number]
--- NOTE | 2016-08-31 15:34 | NUR ---
IV REMOVED, CATH INTACT. DISCHARGE INSTRUCTIONS GIVEN, PT DISCHARGED TO HOME WITH FAMILY MEMBER AT THIS TIME.
== END 2016-08-31 15:35 | disposition home or self-care (01) | DRG 189 ==
LOC: D.ER 10:52 → D.MS 17:57
PROVIDERS: Emergency Medicine; ADMIT Family Medicine
PROC: 5A09457 Assistance with Respiratory Ventilation, 24-96 Consecutive Hours, Continuous Positive Airway Pressure (ICD-10-PCS; principal; 2016-08-28)
DX: J96.22 Acute and chronic respiratory failure with hypercapnia (principal); J18.1 Lobar pneumonia, unspecified organism; J44.0 Chronic obstructive pulmonary disease with (acute) lower respiratory infection; J44.1 Chronic obstructive pulmonary disease with (acute) exacerbation; E87.2 Acidosis; N39.0 Urinary tract infection, site not specified; I48.91 Unspecified atrial fibrillation; I25.10 Atherosclerotic heart disease of native coronary artery without angina pectoris; I10 Essential (primary) hypertension; J45.909 Unspecified asthma, uncomplicated; G47.33 Obstructive sleep apnea (adult) (pediatric); R73.9 Hyperglycemia, unspecified

== ENCOUNTER → 2016-10-31 12:29 | Outpatient (CLI) | payer MEDICARE ==
[2016-08-29 15:04] VITALS: BMI 34.9
[~2016-10-31 12:29] MED LIST changes: +FLORAJEN3 CAPS460 MG PO; +IPRAT-ALBUT 0.5-3 ML INH
== END | disposition home or self-care (01) ==
LOC: D.RT 12:29
DX: J44.9 Chronic obstructive pulmonary disease, unspecified (principal)

== ENCOUNTER 2016-11-20 05:03 | Day surgery (SDC) | payer MEDICARE ==
[~2016-11-20] VITALS: Ht 190.5 cm; Wt 130.2 kg
--- NOTE | ~2016-11-20 | OP ---
PATIENT NAME: AYSHA FELIX MEDICAL RECORD: [id number] :39 LOCATION:D.OPS ADMISSION DATE: SURGEON: DARRIUS DELGADO MD DATE OF OPERATION: 11/20/2016 PREOPERATIVE DIAGNOSES: 1. Umbilical hernia. 2. Atrial fibrillation. 3. Obstructive sleep apnea. 4. Hypertension. 5. Chronic obstructive pulmonary disease. 6. Morbid obesity with a BMI of 36. POSTOPERATIVE DIAGNOSES: 1. Umbilical hernia. 2. Atrial fibrillation. 3. Obstructive sleep apnea. 4. Hypertension. 5. Chronic obstructive pulmonary disease. 6. Morbid obesity with a BMI of 36. PROCEDURE: Umbilical hernia repair with 4.6 cm Proceed mesh. SURGEON: Darrius Delgado MD REPORT OF PROCEDURE: The patient's abdomen was prepped and draped in sterile fashion. A semicircular incision was made on the inferior aspect of the umbilicus. Electrocautery was used to dissect through the subcutaneous tissues and we came around the patient's umbilical stalk. There was an incarcerated fatty tissue from the omentum present within it. We were eventually able to open up the hernia sac and freed up the omentum and was able see there was some firmness to the omentum distally. This portion of omentum was transected and tied off with a 3-0 silk and the end of this firm portion of omentum was sent off for permanent specimen. We then placed the rest of the omentum back into the abdominal cavity. We freed up the fascial edges in all directions and removed the hernia sac. The fascial defect was 2.4 cm wide x 1.3 cm long. We freed up the anterior and posterior surface of the fascia and inserted a 4.6 cm Proceed mesh. This was sutured down on all 4 sides using interrupted 0 Prolene. The mesh appeared to lay well against the abdominal wall. We then irrigated out the wound and closed the fascia transversely using running 0 Vicryl. The umbilicus was then tacked down using an interrupted 3-0 Vicryl and the subcutaneous tissues were reapproximated with interrupted 3-0 Vicryls. A 10 mL of 0.25% Marcaine plain was infused into the surrounding tissues and the skin was closed with running subcutaneous 5-0 Monocryl. The wound was then dressed appropriately. COMPLICATIONS: None. CONDITION: Stable. ANESTHESIA: General endotracheal and local. BLOOD LOSS: Minimal. TRANSINT:[id number] Voice Confirmation ID: [id number] DOCUMENT ID: [id number] OPERATIVE REPORT [id number] AYSHA FELIX CHRISTIAN MD CC: YANDEL ORNELAS DO [id number] DICTATION DATE: 11/20/1652 LASER TECHNICIAN: 11/20/16 1345 [facility] [place] 11/20/16 [place] [id number] [place] [id number]
[2016-11-20 06:09] VITALS: BP 135/77; Ht 190.5 cm; Wt 130.2 kg
[2016-11-20 07:17] LABS: BASOPHILS 0.2 % (0-2); EOSINOPHILS 5.1 % (0-7); HEMATOCRIT 40.6 % (42.0-54.0); HEMOGLOBIN 12.9 g/dL (13.5-17.5); IMMATURE GRANULOCYTES 0.3 % (0-5); MCH 29.5 pg (26.0-34.0); MCHC 31.8 g/dL (31.0-37.0); MCV 92.9 fL (80.0-100.0); MEAN PLATELET VOLUME 10.5 fL (7.4-10.4); MONOCYTES 7.8 % (2-11); NEUTROPHILS 59.6 % (40-80); PLATELET COUNT 175 10x3/uL (130-400); RBC 4.37 10x6/uL (4.20-6.10); RDW 13.9 % (11.5-14.5); WBC 6.4 10x3/uL (4.8-10.8)
[2016-11-20 07:27] LABS: CALC OSMOLALITY 290 mosm/kg (275-300); CALCIUM 8.7 mg/dL (8.5-10.1); CARBON DIOXIDE 31.2 mmol/L (21.0-32.0); CHLORIDE - SERUM 107 mmol/L (98-107); POTASSIUM - SERUM 3.8 mmol/L (3.5-5.1); SODIUM 145 mmol/L (136-145); UREA NITROGEN 17 mg/dL (7-18); eGFR NON AFRICAN AMERICAN 77 mL/min (90-120)
[2016-11-20 07:34] LABS: GLUCOSE 98 mg/dL (74-106)
[2016-11-20] MEDS ORDERED: HYDROCODONE-APA1 TAB PO (08:58)
== END 2016-11-20 11:21 | disposition home or self-care (01) ==
LOC: D.OPS 05:03 → D.PAN 07:30 → D.OPS 11:21
PROVIDERS: Surgery
DX: K42.9 Umbilical hernia without obstruction or gangrene (principal); I48.91 Unspecified atrial fibrillation; G47.33 Obstructive sleep apnea (adult) (pediatric); I10 Essential (primary) hypertension; J44.9 Chronic obstructive pulmonary disease, unspecified; E66.01 Morbid (severe) obesity due to excess calories; Z68.36 Body mass index [BMI] 36.0-36.9, adult; Z01.812 Encounter for preprocedural laboratory examination

== ENCOUNTER → 2017-02-07 09:58 | Outpatient (CLI) | payer MEDICARE ==
[2016-11-20 06:09] VITALS: BMI 35.9
[~2017-02-07 09:58] MED LIST changes: +HYDROCODONE-APA1 TAB PO
== END | disposition home or self-care (01) ==
LOC: D.LAB 09:58
DX: J90 Pleural effusion, not elsewhere classified (principal); Z98.890 Other specified postprocedural states

== ENCOUNTER → 2018-02-06 13:02 | Outpatient (CLI) | payer MEDICARE ==
[2016-11-20 06:09] VITALS: BMI 35.9
== END | disposition home or self-care (01) ==
LOC: D.RT 13:00
DX: J44.9 Chronic obstructive pulmonary disease, unspecified (principal)

== ENCOUNTER → 2019-02-03 09:17 | Outpatient (CLI) | payer MEDICARE ==
[2016-11-20 06:09] VITALS: BMI 35.9
== END | disposition home or self-care (01) ==
LOC: D.RT 09:17
PROVIDERS: ATTEND Internal Medicine Pulmonary Disease
DX: J44.9 Chronic obstructive pulmonary disease, unspecified (principal)

== ENCOUNTER → 2020-03-04 09:11 | Outpatient (CLI) | payer MEDICARE ==
[2016-11-20 06:09] VITALS: BMI 35.9
== END | disposition home or self-care (01) ==
LOC: D.LAB 09:11
PROVIDERS: ATTEND Internal Medicine Pulmonary Disease
DX: Z11.59 Encounter for screening for other viral diseases (principal)

== ENCOUNTER → 2020-03-07 07:21 | Outpatient (CLI) | payer MEDICARE ==
[2016-11-20 06:09] VITALS: BMI 35.9
== END | disposition home or self-care (01) ==
LOC: D.RT 07:21
PROVIDERS: ATTEND Internal Medicine Pulmonary Disease
DX: J44.9 Chronic obstructive pulmonary disease, unspecified (principal)